=== PATIENT | male | born 1965 | race African-American/Black ===

== ENCOUNTER 2017-08-27 18:09 | Inpatient (IN) | payer OTHER ==
[2017-08-27 21:21] VITALS: BMI 22.7
--- NOTE | 2017-08-27 23:53 | HP ---
<Maki Chin - Last Filed: 08/28/17 02:47> CIWA Score - CIWA Score Nausea/Vomitin-No Nausea/No Vomiting Muscle Tremors: 4-Moderate,w/Arms Extend Anxiety: 4-Mod. Anxious/Guarded Agitation: 4-Moderately Restless Paroxysmal Sweats: No Perspiration Orientation: 1-Uncertain about Date Tacttile Disturbances: 1-Very Mild Itch/Numbness Auditory Disturbances: 0-None Visual Disturbances: 0-None Headache: 4-Moderately Severe CIWA-Ar Total Score: 18 Admission ROS S - HPI Chief Complaint: Alcohol withdrawal symptoms Allergies/Adverse Reactions: Allergies Allergy/AdvReac Type Severity Reaction Status Date / Time No Known Allergies Allergy Verified 08/27/17 23:13 History of Present Illness: 52 years old male with a long history of alcohol , cocaine and marijuana dependence was admitted to detox. Patient has been in previous detox and reports no significant period of sobriety. He had triple heart bypass but can not recollect when the procedure was done. He denies suicidal ideation at this time. Exam Limitations: No Limitations - Ebola screening Have you traveled outside of the country in the last 21 days: No Have you had contact with anyone from an Ebola affected area: No Have you been sick,other than usual withdrawal symptoms: No - Review of Systems Constitutional: Chills, Loss of Appetite, Malaise, Night Sweats, Changes in sleep EENT: reports: Nose Congestion, Sinus Pressure Cardiac: reports: No Symptoms Reported GI: reports: Diarrhea (x 2), Poor Appetite, Poor Fluid Intake, Abdominal cramping : reports: No Symptoms Reported Musculoskeletal: reports: No Symptoms Reported, Back Pain, Muscle Pain, Muscle Weakness Integumentary: reports: Flushing Neuro: reports: Headache, Tingling, Tremors Endocrine: reports: Flushing Hematology: reports: No Symptoms Reported Psychiatric: reports: Agitated, Anxious, Depressed Other Systems: Reviewed and Negative Patient History - Patient Medical History Hx Anemia: No Hx Asthma: No Hx Chronic Obstructive Pulmonary Disease (COPD): No Hx Cancer: No Hx Cardiac Disorders: Yes (Triple heart bypass) Hx Congestive Heart Failure: No Hx Hypertension: No Hx Hypercholesterolemia: No Hx Pacemaker: No HX Cerebrovascular Accident: No Hx Seizures: No Hx Dementia: No Hx Diabetes: No Hx Gastrointestinal Disorders: No Hx Liver Disease: No Hx Genitourinary Disorders: No Hx Sexually Transmitted Disorders: No Hx Renal Disease (ESRD): No Hx Thyroid Disease: No Hx Human Immunodeficiency Virus (HIV): No Hx Hepatitis C: No Hx Depression: No Hx Suicide Attempt: No Hx Bipolar Disorder: No Hx Schizophrenia: No - Patient Surgical History Past Surgical History: Yes Hx Neurologic Surgery: No Hx Cataract Extraction: No Hx Cardiac Surgery: No Hx Lung Surgery: No Hx Breast Surgery: No Hx Breast Biopsy: No Hx Abdominal Surgery: No Hx Appendectomy: No Hx Cholecystectomy: No Hx Genitourinary Surgery: No Hx Section: No Hx Orthopedic Surgery: Yes (left pinky tendon repair with contracture) Other Surgical History: CARDIAC ANGIOGRAPHY-2008 - PPD History Previous Implant?: Yes Documented Results: Negative w/proof Implanted On Prior [facility] Admission?: Yes Date: 11/25/14 PPD to be Administered?: Yes - Reproductive History Patient is a Female of Child Bearing Age (11 -55 yrs old): No (MALE) - Smoking Cessation Smoking history: Current every day smoker Have you smoked in the past 12 months: Yes Aproximately how many cigarettes per day: 10 Hx Chewing Tobacco Use: No Initiated information on smoking cessation: Yes 'Breaking Loose' booklet given: 08/28/17 - Substances Abused Alcohol Route: Oral Frequency: Daily Amount used: BEER- 1. 40oz Age of first use: 19 Date of Last Use: 08/26/17 Crack Route: Smoking Frequency: Daily Amount used: 5 bags Age of first use: 19 Date of Last Use: 08/26/17 Family Disease History - Family Disease History Family Disease History: Heart Disease: Father (Heart attack - ) Admission Physical Exam S - Vital Signs Vital Signs: Vital Signs - 24 hr 08/27/17 21:19 Temperature 98.8 F Pulse Rate 100 H Respiratory 18 Rate Blood Pressure 112/76 - Physical General Appearance: Yes: Moderate Distress, Tremorous, Irritable, Anxious HEENTM: Yes: EOMI, Normal Voice, CHITRA Respiratory: Yes: Lungs Clear, Normal Breath Sounds, No Respiratory Distress Neck: Yes: Supple Breast: Yes: Breast Exam Deferred Cardiology: Yes: Tachycardia Abdominal: Yes: Normal Bowel Sounds, Soft Genitourinary: Yes: Within Normal Limits Back: Yes: Within Normal Limits Musculoskeletal: Yes: Muscle Pain, Muscle weakness Extremities: Yes: Tremors, Other (tatoo to left shoulder) Neurological: Yes: Within Normal Limits, Alert, Normal Mood/Affect, Normal Response Integumentary: Yes: Dry Lymphatic: Yes: Within Normal Limits - Diagnostic (1) Alcohol dependence with uncomplicated withdrawal Current Visit: Yes Status: Chronic (2) Cocaine dependence, uncomplicated Current Visit: Yes Status: Chronic (3) Cannabis dependence, uncomplicated Current Visit: Yes Status: Chronic (4) Nicotine dependence Current Visit: No Status: Chronic QualifierTitle: Nicotine product type: cigarettes Cleared for Admission [facility] - Detox or Rehab [facility] Level of Care: Medically Managed Detox Regimen/Protocol: Librium [facility] Breath Alcohol Content Breath Alcohol Content: 0 Urine Drug Screen - Results Drug Screen Negative: No Urine Drug Screen Results: MARNIE-Cocaine <Robert Hernandez - Last Filed: 08/29/17 07:51> Admission Physical Exam [facility] - Vital Signs Vital Signs: Vital Signs - 24 hr 08/28/17 08/28/17 08/28/17 09:57 14:01 23:17 Temperature 99.1 F 97.0 F L Pulse Rate 97 H 87 Respiratory 20 19 18 Rate Blood Pressure 103/58 107/59 08/28/17 08/29/17 08/29/17 23:24 06:00 06:42 Temperature 99.1 F 98.4 F Pulse Rate 97 H 90 Respiratory 20 18 17 Rate Blood Pressure 118/72 124/62 - Diagnostic (1) Learning disorder Current Visit: No Status: Chronic (2) CAD (coronary artery disease) Current Visit: Yes Status: Acute
[2017-08-28] MEDS ORDERED: MAGNESIUM HYDROX 2400MG/30ML ORAL SUSPENSION 30 ML CUP PO PRN (00:12)
[2017-08-28] MEDS ORDERED: MAG HYDROX/AL HYDROX/SIMETH 30 ML UNIT-DOSE CUP PO PRN (00:12)
[2017-08-28] MEDS ORDERED: hydrOXYzine PAMOATE 50 MG CAPSULE (FP) PO PRN (00:12)
[2017-08-28] MEDS ORDERED: ACETAMINOPHEN 325 MG TABLET (FP) PO PRN (00:12)
[2017-08-28] MEDS ORDERED: chlordiazePOXIDE HCL 25 MG CAPSULE PO ONE (00:12)
[2017-08-28] MEDS ORDERED: MENTHOL/PHENOL 1 EACH UD MM PRN (00:12)
[2017-08-28] MEDS ORDERED: guaiFENesin/D-METHORPHAN HB 10 ML UNIT-DOSE CUPS PO PRN (00:12)
[2017-08-28] MEDS ORDERED: IBUPROFEN 400 MG TABLET (FP) PO PRN (00:12)
[2017-08-28] MEDS ORDERED: NICOTINE POLACRILEX 2 MG GUM BC PRN (00:12)
[2017-08-28] MEDS ORDERED: chlordiazePOXIDE HCL 25 MG CAPSULE PO PRN (00:12)
[2017-08-28] MEDS ORDERED: MAGNESIUM CITRATE 300 ML BOTTLE PO PRN (00:12)
[2017-08-28] MEDS ORDERED: LOPERAMIDE HCL 2 MG CAPSULE PO PRN (00:12)
[2017-08-28] MEDS ORDERED: P-EPHED 60MG/TRIPROLIDI 2.5MG TABLET PO PRN (00:12)
[2017-08-28] MEDS: chlordiazePOXIDE HCL 25 MG CAPSULE PO SCH ×4 (07:40→22:37)
[2017-08-28 09:51] LABS: MCH 38.1 pg (25.7-33.7); MCHC 34.1 g/dl (32.0-35.9); MEAN CELL VOLUME 111.6 fl (80-96); MEAN PLT VOLUME 8.4 fl (7.5-11.1); PLATELET COUNT 165 K/MM3 (134-434); WHITE BLOOD COUNT 6.3 K/mm3 (4.0-10.0)
--- NOTE | 2017-08-28 10:09 | EKG ---
Test Reason : Blood Pressure : / mmHG Vent. Rate : 086 BPM Atrial Rate : 086 BPM P-R Int : 134 ms QRS Dur : 076 ms QT Int : 354 ms P-R-T Axes : 071 053 044 degrees QTc Int : 423 ms SINUS RHYTHM WITH FREQUENT and consecutive PREMATURE VENTRICULAR COMPLEXES SEPTAL INFARCT , AGE UNDETERMINED ABNORMAL ECG NO PREVIOUS ECGS AVAILABLE Confirmed by TONI GOODWIN MD ([id number]) on 08/28/2017 10:08:38 AM Referred By: Confirmed By:TONI GOODWIN MD
[2017-08-28 10:14] LABS: ALBUMIN 3.2 g/dl (3.4-5.0); ALK PHOS 64 U/L (45-117); ANION GAP 6 (8-16); CO2 27 mmol/L (21-32); CREATININE 0.9 mg/dL (0.7-1.3); GLUCOSE,RANDOM 98 mg/dL (74-106); SGOT/AST 11 U/L (15-37); SGPT/ALT 17 U/L (12-78); TOT PROT 5.6 g/dl (6.4-8.2)
--- NOTE | 2017-08-28 10:55 | PN ---
S CIWA - CIWA Score Nausea/Vomitin-No Nausea/No Vomiting Muscle Tremors: 3 Anxiety: 3 Agitation: 2 Paroxysmal Sweats: 3 Orientation: 0-Oriented Tacttile Disturbances: 0-None Auditory Disturbances: 0-None Visual Disturbances: 0-None Headache: 0-None Present CIWA-Ar Total Score: 11 S Progress Note (SOAP) Subjective: Sweating,tremors,anxiety,interrupted sleep,restless. Objective: 08/28/17 10:54 Vital Signs - 8 hr 08/28/17 08/28/17 08/28/17 04:21 06:34 09:57 Temperature 96.4 F L 99.1 F Pulse Rate 93 H 97 H Respiratory 18 18 20 Rate Blood Pressure 113/67 103/58 Laboratory Tests 08/28/17 08/28/17 07:00 07:00 WBC 6.3 RBC 3.10 L Hgb 11.8 Hct 34.6 L MCV 111.6 H MCH 38.1 H D MCHC 34.1 RDW 16.0 H Plt Count 165 D MPV 8.4 Sodium 143 Potassium 3.7 Chloride 110 H Carbon Dioxide 27 Anion Gap 6 L BUN 13 Creatinine 0.9 Creat Clearance w eGFR > 60 Random Glucose 98 Calcium 8.0 L Total Bilirubin 1.0 D AST 11 L ALT 17 D Alkaline Phosphatase 64 Total Protein 5.6 L Albumin 3.2 L labs noted Assessment: 08/28/17 10:54 Withdrawal sx. Plan: Continue detox Change level of care
[2017-08-28] MEDS: PRENATAL VITAMINS W/ FOLIC ACID TABLET (FP) PO SCH (11:08)
[2017-08-28] MEDS: NICOTINE 14 MG/24 HOURS TOPICAL PATCH TD SCH (11:09)
[2017-08-28] MEDS: ASPIRIN 81 MG CHEWABLE TABLETS PO SCH (11:09)
[2017-08-28 13:37] LABS: URINE APPEARANCE CLEAR; URINE BILIRUBIN NEGATIVE (NEGATIVE); URINE BLOOD NEGATIVE (NEGATIVE); URINE COLOR LTYELLOW; URINE GLUCOSE (UA) NEGATIVE (NEGATIVE); URINE KETONE NEGATIVE (NEGATIVE); URINE NITRITE NEGATIVE (NEGATIVE); URINE PROTEIN NEGATIVE (NEGATIVE); URINE UROBILINOGEN 4.0 E.U/dl mg/dL (0.2-1.0)
[2017-08-28 17:15] LABS: URINE LEUK ESTERASE Negative (NEGATIVE)
[2017-08-28] MEDS: THIAMINE HCL 100 MG TABLET (FP) PO SCH (22:37)
[2017-08-29] MEDS: chlordiazePOXIDE HCL 25 MG CAPSULE PO SCH ×4 (05:55→22:56)
[2017-08-29] MEDS: PRENATAL VITAMINS W/ FOLIC ACID TABLET (FP) PO SCH (10:50)
[2017-08-29] MEDS: NICOTINE 14 MG/24 HOURS TOPICAL PATCH TD SCH (10:50)
[2017-08-29] MEDS: ASPIRIN 81 MG CHEWABLE TABLETS PO SCH (10:50)
--- NOTE | 2017-08-29 14:00 | PN ---
S CIWA - CIWA Score Nausea/Vomitin-No Nausea/No Vomiting Muscle Tremors: 3 Anxiety: 3 Agitation: 3 Paroxysmal Sweats: 3 Orientation: 2-Disoriented Date<2 days Tacttile Disturbances: 1-Very Mild Itch/Numbness Auditory Disturbances: 0-None Visual Disturbances: 0-None Headache: 0-None Present CIWA-Ar Total Score: 15 [facility] Progress Note (SOAP) Subjective: Anxiety,sweating,tremors,interrupted sleep,restless Objective: 08/29/17 13:59 Vital Signs - 8 hr 08/29/17 08/29/17 08/29/17 06:00 06:42 10:00 Temperature 98.4 F 97.9 F Pulse Rate 90 101 H Respiratory 18 17 20 Rate Blood Pressure 124/62 119/56 Laboratory Tests 08/28/17 08/28/17 08/28/17 07:00 07:00 07:00 WBC 6.3 RBC 3.10 L Hgb 11.8 Hct 34.6 L MCV 111.6 H MCH 38.1 H D MCHC 34.1 RDW 16.0 H Plt Count 165 D MPV 8.4 Sodium 143 Potassium 3.7 Chloride 110 H Carbon Dioxide 27 Anion Gap 6 L BUN 13 Creatinine 0.9 Creat Clearance w eGFR > 60 Random Glucose 98 Calcium 8.0 L Total Bilirubin 1.0 D AST 11 L ALT 17 D Alkaline Phosphatase 64 Total Protein 5.6 L Albumin 3.2 L Urine Color Urine Appearance Urine pH Ur Specific [place] Urine Protein Urine Glucose (UA) Urine Ketones Urine Blood Urine Nitrite Urine Bilirubin Urine Urobilinogen Ur Leukocyte Esterase RPR Titer Hepatitis C Antibody <0.1 08/28/17 08/28/17 07:00 10:00 WBC RBC Hgb Hct MCV MCH MCHC RDW Plt Count MPV Sodium Potassium Chloride Carbon Dioxide Anion Gap BUN Creatinine Creat Clearance w eGFR Random Glucose Calcium Total Bilirubin AST ALT Alkaline Phosphatase Total Protein Albumin Urine Color Ltyellow Urine Appearance Clear Urine pH 7.0 D Ur Specific [place] 1.013 Urine Protein Negative Urine Glucose (UA) Negative Urine Ketones Negative Urine Blood Negative Urine Nitrite Negative Urine Bilirubin Negative Urine Urobilinogen 4.0 e.u/dl Ur Leukocyte Esterase Negative RPR Titer Nonreactive Hepatitis C Antibody labs noted Assessment: 08/29/17 13:59 Withdrawal sx. Plan: Continue detox
[2017-08-29] MEDS: THIAMINE HCL 100 MG TABLET (FP) PO SCH (22:56)
[2017-08-30] MEDS ORDERED: chlordiazePOXIDE 5 MG CAPSULE PO SCH (05:00)
[2017-08-30 09:48] VITALS: BP 99/77; PULSE 92; TEMP 98.2
--- NOTE | 2017-08-30 10:49 | DS ---
[facility] Detox Discharge Summary Admission Date: 08/27/17 Discharge Date: 08/30/17 - History Present History: Alcohol Dependence, Cannabis Dependence, Cocaine Dependence Additional Comments: face to face with the patient discuss benefits of detox completion encourage aftercare for recovery patient insists to leave today and go to [facility] tomorrow - Physical Exam Results Vital Signs: Vital Signs Temperature 98.2 F 08/30/17 09:47 Pulse Rate 92 H 08/30/17 09:47 Respiratory Rate 20 08/30/17 09:47 Blood Pressure 99/77 08/30/17 09:47 O2 Sat by Pulse Oximetry (%) Pertinent Admission Physical Exam Findings: withdrawal sx Laboratory Last Values WBC 6.3 K/mm3 (4.0-10.0) 08/28/17 07:00 RBC 3.10 M/mm3 (4.00-5.60) L 08/28/17 07:00 Hgb 11.8 GM/dL (11.7-16.9) 08/28/17 07:00 Hct 34.6 % (35.4-49) L 08/28/17 07:00 MCV 111.6 fl (80-96) H 08/28/17 07:00 MCH 38.1 pg (25.7-33.7) H D 08/28/17 07:00 MCHC 34.1 g/dl (32.0-35.9) 08/28/17 07:00 RDW 16.0 % (11.9-15.9) H 08/28/17 07:00 Plt Count 165 K/MM3 (134-434) D 08/28/17 07:00 MPV 8.4 fl (7.5-11.1) 08/28/17 07:00 Sodium 143 mmol/L (136-145) 08/28/17 07:00 Potassium 3.7 mmol/L (3.5-5.1) 08/28/17 07:00 Chloride 110 mmol/L (98-107) H 08/28/17 07:00 Carbon Dioxide 27 mmol/L (21-32) 08/28/17 07:00 Anion Gap 6 (8-16) L 08/28/17 07:00 BUN 13 mg/dL (7-18) 08/28/17 07:00 Creatinine 0.9 mg/dL (0.7-1.3) 08/28/17 07:00 Creat Clearance w eGFR > 60 (>60) 08/28/17 07:00 Random Glucose 98 mg/dL (74-106) 08/28/17 07:00 Calcium 8.0 mg/dL (8.5-10.1) L 08/28/17 07:00 Total Bilirubin 1.0 mg/dL (0.2-1.0) D 08/28/17 07:00 AST 11 U/L (15-37) L 08/28/17 07:00 ALT 17 U/L (12-78) D 08/28/17 07:00 Alkaline Phosphatase 64 U/L (45-117) 08/28/17 07:00 Total Protein 5.6 g/dl (6.4-8.2) L 08/28/17 07:00 Albumin 3.2 g/dl (3.4-5.0) L 08/28/17 07:00 Urine Color Ltyellow 08/28/17 10:00 Urine Appearance Clear 08/28/17 10:00 Urine pH 7.0 (5.0-8.0) D 08/28/17 10:00 Ur Specific [place] 1.013 (1.001-1.035) 08/28/17 10:00 Urine Protein Negative (NEGATIVE) 08/28/17 10:00 Urine Glucose (UA) Negative (NEGATIVE) 08/28/17 10:00 Urine Ketones Negative (NEGATIVE) 08/28/17 10:00 Urine Blood Negative (NEGATIVE) 08/28/17 10:00 Urine Nitrite Negative (NEGATIVE) 08/28/17 10:00 Urine Bilirubin Negative (NEGATIVE) 08/28/17 10:00 Urine Urobilinogen 4.0 e.u/dl mg/dL (0.2-1.0) 08/28/17 10:00 Ur Leukocyte Esterase Negative (NEGATIVE) 08/28/17 10:00 RPR Titer Nonreactive (NONREACTIVE) 08/28/17 07:00 Hepatitis C Antibody <0.1 s/co ratio (0.0-0.9) 08/28/17 07:00 lab noted - Treatment Hospital Course: Detox Protocol Followed, Responded well Patient has Accepted a Rehab Referral to: patient wants to go home and go to [facility] 11/04/17 - Medication Discharge Medications: Ambulatory Orders Aspirin [ASA -] 81 mg PO DAILY #30 tab 08/31/12 Ferrous Sulfate [Feosol] 0 mg PO BID #0 ud 08/31/12 - Diagnosis (1) Alcohol dependence with uncomplicated withdrawal Current Visit: Yes Status: Acute (2) Cannabis dependence, uncomplicated Current Visit: Yes Status: Chronic (3) Cocaine dependence, uncomplicated Current Visit: Yes Status: Chronic (4) Nicotine dependence Current Visit: Yes Status: Acute Qualifiers: Nicotine product type: cigarettes Substance use status: in withdrawal Qualified Code(s): F17.213 - Nicotine dependence, cigarettes, with withdrawal - AMA Did Patient Leave Against Medical Advice: Yes
--- NOTE | 2017-08-30 11:10 | PN ---
[facility] Progress Note Note: Patient could not be seen because he signed out against medical advice
[2017-08-31] MEDS ORDERED: chlordiazePOXIDE HCL 10 MG CAPSULE PO SCH (05:00)
== END 2017-08-30 10:30 | disposition left against medical advice (07) | DRG 770 ==
LOC: YASAS 18:09 → Y6N 23:17
PROVIDERS: ADMIT Internal Medicine; ATTEND Internal Medicine
PROC: HZ2ZZZZ Detoxification Services for Substance Abuse Treatment (ICD-10-PCS; principal; 2017-08-27)
DX: F10.230 Alcohol dependence with withdrawal, uncomplicated (principal); F14.20 Cocaine dependence, uncomplicated; F12.20 Cannabis dependence, uncomplicated; F17.213 Nicotine dependence, cigarettes, with withdrawal; Z95.1 Presence of aortocoronary bypass graft
CPT/HCPCS: 36415; 80053; 81003; 85027; 86593; 86803; 93005; 93010

== ENCOUNTER 2019-03-17 15:22 | Emergency (ER) | payer OTHER ==
[2019-03-17 15:58] VITALS: BMI 23.1
--- NOTE | 2019-03-17 16:03 | PDOC ---
History of Present Illness - General Chief Complaint: Lightheaded Stated Complaint: CVA/TIA Time Seen by Provider: 03/17/19 16:03 History Source: Patient Exam Limitations: No Limitations - History of Present Illness Initial Comments: 03/17/19 16:18 54 year old male with PMH cocaine/marijuana/ETOH/nicotine abuse, GERD, irregular heart beat presented to ED for lightheadedness since last night. Pt admitted to generalized weakness. Pt denied nausea/vomiting/diarrhea, abdominal pain, chest pain, palpitations, focal weakness, numbness, tingling. Pt was seen at [facility], was told he needed a head CT for a stroke rule out, and sent to [facility] ED because their CT machine was broken. NIH Stroke Scale - Last Known Well Date/Time & Onset Date Last Known Well: 03/17/19 Time Last Known Well: 12:30 - Initial Evaluation Level of consciousness: Alert Ask patient the month and their age: Answers both correctly Ask patient to open & close eyes; make fist and let go: Obeys one correctly ( Did not know the month) Best gaze (horizontal eye movement): Normal Visual field testing: No visual field loss Facial paresis (Show teeth/raise eyebrows/close eyes tight): Normal symmetrical movement Motor Function: Left Arm: Normal Motor Function: Right Arm: Normal (extends arm 90 (or 45) degrees for 10 seconds without drift Motor Function: Left Leg: Normal (extends leg 30 degrees for 5 seconds without drift) Motor Function: Right Leg: Normal (extends leg 30 degrees for 5 seconds without drift) Limb Ataxia: No ataxia Sensory(Use pinprick test arms,legs,trunk,face/side to side): Normal Best language (Describe picture, name items, read sentences): No Aphasia Dysarthria (read several words): Normal articulation Extinction and Inattention: No abnormality - Total Score NIH Stroke Scale Score: 1 Past History - Past Medical History Allergies/Adverse Reactions: Allergies Allergy/AdvReac Type Severity Reaction Status Date / Time No Known Allergies Allergy Verified 03/17/19 15:54 Home Medications: Ambulatory Orders Aspirin [ASA -] 81 mg PO DAILY #30 tab 08/31/12 Ferrous Sulfate [Feosol] 0 mg PO BID #0 ud 08/31/12 Anemia: Yes Asthma: No Cancer: No Cardiac Disorders: Yes (Triple heart bypass) CVA: Yes (walks with cane.) COPD: No CHF: No Dementia: No Diabetes: No GI Disorders: No Disorders: No HTN: No Hypercholesterolemia: No Kidney Stones: No Liver Disease: No Seizures: No Thyroid Disease: No - Surgical History Abdominal Surgery: No Appendectomy: No Cardiac Surgery: No Cholecystectomy: No Lung Surgery: No Neurologic Surgery: No Orthopedic Surgery: Yes (left pinky tendon repair with contracture) - Reproductive History Testicular Surgery: No - Suicide/Smoking/Psychosocial Hx Smoking History: Current every day smoker Have you smoked in the past 12 months: Yes Number of Cigarettes Smoked Daily: 2 Cigars Per Day: 0 Information on smoking cessation initiated: No 'Breaking Loose' booklet given: 08/28/17 Hx Alcohol Use: No Drug/Substance Use Hx: No Substance Use Type: Cocaine ("every day that I can get my hands on it") Hx Substance Use Treatment: Yes (Attends [facility]) Review of Systems - Review of Systems Able to Perform ROS?: Yes Comments:: 03/17/19 16:19 General: admitted to generalized weakness. denied fever, chills. HEENT: denied sore throat, rhinorrhea, ear pain. Heart: admitted to presyncope. denied chest pain, palpitations, diaphoresis. Respiratory: denied shortness of breath, cough, sputum production, hemoptysis. Abdomen: denied abdominal pain, nausea, vomiting, diarrhea, constipation, blood in stool. : denied dysuria, increased urinary frequency, hematuria, urinary incontinence , flank pain. Back: denied back pain. Musculoskeletal: denied joint pain, muscle pain, joint swelling. Neurological: denied headache, dizziness, numbness, tingling, weakness. Skin: denied rash, laceration, abrasion. *Physical Exam - Vital Signs Last Vital Signs Temp Pulse Resp BP Pulse Ox 98.1 F 84 16 91/57 L 100 03/17/19 15:22 03/17/19 15:22 03/17/19 15:22 03/17/19 15:22 03/17/19 15:22 - Physical Exam Comments: 03/17/19 16:20 Constitutional: Well-nourished, Well-developed, appearing stated age. in no acute distress. HEENT: head is normocephalic, atraumatic. EOMI. PERRLA. Neck: supple. Full ROM. Heart: regular rhythm. no murmurs, rubs or gallops. Lungs: clear to auscultation bilaterally. no crackles, rhonchi or wheezing. no stridor. Abdomen: soft, nontender. normal bowel sounds. no rebound, guarding, masses. Extremities: peripheral pulses intact. no lower extremity edema. Neurological: alert. oriented x3. CN2-12 intact. 5/5 strength all extremities. full sensation all extremities and bilateral face. romberg negative. no ataxia. gait not observed. Psych: awake, somnolent but arousable to voice, oriented x3. follows commands. answers questions appropriately. ED Treatment Course - LABORATORY CBC & Chemistry Diagram: 03/17/19 16:30 03/17/19 16:30 Medical Decision Making - Medical Decision Making 03/17/19 16:21 54 year old male with above PMH presented to ED for lightheadedness associated with generalized weakness. Pt is poorly compliant with medication. Initial Vital Signs Temp Pulse Resp BP Pulse Ox 98.1 F 84 16 91/57 L 100 03/17/19 15:22 03/17/19 15:22 03/17/19 15:22 03/17/19 15:22 03/17/19 15:22 Afebrile. No tachycardia. No tachypnea. Hypotensive. No hypoxia on room air. Labs ordered: CBC, CMP, TSH, troponin, BNP Imaging ordered: CXR, CT head Medications ordered: normal saline bolus 1000 cc EKG performed at 1619: rate 84, regular rhythm, normal axis, normal intervals, no acute ST changes. 03/17/19 17:33 CBC WBC 2.9 K/mm3 (4.0-10.0) L 03/17/19 16:30 RBC 0.99 M/mm3 (4.00-5.60) L 03/17/19 16:30 Hgb 4.2 GM/dL (11.7-16.9) L* 03/17/19 16:30 Hct 12.0 % (35.4-49) L 03/17/19 16:30 MCV 120.6 fl (80-96) H 03/17/19 16:30 MCH 42.7 pg (25.7-33.7) H D 03/17/19 16:30 MCHC 35.4 g/dl (32.0-35.9) 03/17/19 16:30 RDW 20.3 % (11.9-15.9) H 03/17/19 16:30 Plt Count 86 K/MM3 (134-434) L D 03/17/19 16:30 MPV 8.3 fl (7.5-11.1) 03/17/19 16:30 Severe macrocytic anemia. Leukopenia. Thrombocytopenia. Pt informed of results and need for PRBC. Pt informed of risks of blood transfusion. Pt consented to blood transfusion. Pt consented to HIV testing. Labs ordered: T/S x2, HIV 03/17/19 17:40 CMP Sodium 140 mmol/L (136-145) 03/17/19 16:30 Potassium 4.2 mmol/L (3.5-5.1) 03/17/19 16:30 Chloride 108 mmol/L (98-107) H 03/17/19 16:30 Carbon Dioxide 28 mmol/L (21-32) 03/17/19 16:30 Anion Gap 3 MMOL/L (8-16) L 03/17/19 16:30 BUN 9.6 mg/dL (7-18) 03/17/19 16:30 Creatinine 0.9 mg/dL (0.55-1.3) 03/17/19 16:30 Est GFR (CKD-EPI)AfAm 112.62 03/17/19 16:30 Est GFR (CKD-EPI)NonAf 97.17 03/17/19 16:30 Random Glucose 100 mg/dL (74-106) 03/17/19 16:30 Calcium 8.1 mg/dL (8.5-10.1) L 03/17/19 16:30 Total Bilirubin 0.8 mg/dL (0.2-1) 03/17/19 16:30 AST 321 U/L (15-37) H 03/17/19 16:30 ALT 115 U/L (13-61) H 03/17/19 16:30 Alkaline Phosphatase 51 U/L (45-117) 03/17/19 16:30 Troponin I < 0.02 ng/ml (0.00-0.05) 03/17/19 16:30 B-Natriuretic Peptide 290.5 pg/ml (5-125) H 03/17/19 16:30 Total Protein 6.4 g/dl (6.4-8.2) 03/17/19 16:30 Albumin 3.9 g/dl (3.4-5.0) 03/17/19 16:30 TSH 1.53 uIU/ml (0.358-3.74) 03/17/19 16:30 No electrolyte abnormalities. No TANIA. Transaminitis - without abdominal pain. Troponin wnl Mild BNP elevation TSH wnl Labs ordered: Hepatitis panel 03/17/19 18:04 CT head report: Cranial CT without contrast Clinical information: altered mental status, somnolent Multiplanar imaging was performed. Intravenous contrast was not administered. No prior imaging studies are available at this facility for direct comparison. There is prominent dilatation of the lateral and third ventricles consistent with obstructive hydrocephalus. Possible dilatation of the fourth ventricle is also noted versus representing dilatation of the supracerebellar cistern. No definite periventricular interstitial edema is seen suggesting that the obstructive hydrocephalus may in part be chronic in nature. No extra-axial fluid collection is noted. There is no obvious soft tissue mass lesion on noncontrast imaging. No discrete infarct is identified. The calvarium appears intact. Mild to moderate bilateral ethmoid and mild sphenoid sinus mucosal thickening. Mucosal thickening is also seen within the partially imaged maxillary sinuses. Impression: Marked obstructive hydrocephalus is seen. Reported By: Sundeep Jacobs MD 03/17/19 175 CXR report: Chest: Presyncope. Cough. A single AP portable view of the chest reveals clear lungs, normal mediastinum and sharp angles. The bones and soft tissues are intact. Impression: No acute chest pathology. Reported By: Kal Avalos MD 03/17/19 [id number] 03/17/19 18:36 [facility] ED attending reported via phone that patient has only been seen at [facility] one time prior, reported CVA x1 year ago, was not seen at [facility] for it, no prior head imaging at [facility]. 03/17/19 18:[address] Kerns, Neurosurgery, he recommended transfer for possible shunting which could not be performed at this facility. 03/17/19 19:[address] Odonnell, who accepted the patient for transfer. Pt to be transferred to [facility] ER. Pending transfer. Pt signed out to Dr. Bear. Pending blood transfusion. Pending transfer. *DC/Admit/Observation/Transfer Diagnosis at time of Disposition: Leukopenia, Macrocytic anemia, Hydrocephalus - Discharge Dispostion Disposition: TRANSFER ACUTE CARE/OTHER HOSP Condition at time of disposition: Stable Decision to Admit order: No - Referrals - Patient Instructions - Post Discharge Activity
[2019-03-17] MEDS ORDERED: SODIUM CHLORIDE 1,000 ML IV STA (16:06)
[2019-03-17 17:06] LABS: MCHC 35.4 g/dl (32.0-35.9); MEAN CELL VOLUME 120.6 fl (80-96); MEAN PLT VOLUME 8.3 fl (7.5-11.1); RBC 0.99 M/mm3 (4.00-5.60); RDW 20.3 % (11.9-15.9); WHITE BLOOD COUNT 2.9 K/mm3 (4.0-10.0)
[2019-03-17 17:07] LABS: HEMOGLOBIN 4.2 GM/dL (11.7-16.9); MCH 42.7 pg (25.7-33.7)
[2019-03-17 17:08] LABS: PLATELET COUNT 86 K/MM3 (134-434)
[2019-03-17 17:16] LABS: INR 1.13 (0.83-1.09); PROTHROMBIN TIME (PATIENT) 13.3 SEC (9.7-13.0)
[2019-03-17 17:19] LABS: ACTIVATED PTT 33.5 SECONDS (25.2-36.5)
[2019-03-17 17:38] LABS: ALBUMIN 3.9 g/dl (3.4-5.0); ALK PHOS 51 U/L (45-117); ANION GAP 3 MMOL/L (8-16); BILIRUBIN,TOTAL 0.8 mg/dL (0.2-1); BLOOD UREA NITROGEN 9.6 mg/dL (7-18); CALCIUM 8.1 mg/dL (8.5-10.1); CHLORIDE 108 mmol/L (98-107); CO2 28 mmol/L (21-32); CREATININE 0.9 mg/dL (0.55-1.3); GLUCOSE,RANDOM 100 mg/dL (74-106); N-TERMINAL BNP 290.5 pg/ml (5-125); POTASSIUM 4.2 mmol/L (3.5-5.1); SGOT/AST 321 U/L (15-37); SGPT/ALT 115 U/L (13-61); SODIUM 140 mmol/L (136-145); TOT PROT 6.4 g/dl (6.4-8.2)
[2019-03-17 22:44] VITALS: BP 102/55; PULSE 82; TEMP 98.9
--- NOTE | 2019-03-18 10:22 | PDOC ---
Documentation entered by Dustin Arita SCRIBE, acting as scribe for Lori Carrera MD. Lori Carrera MD: This documentation has been prepared by the Juan J moore Daniel, SCRIBE, under my direction and personally reviewed by me in its entirety. I confirm that the documentation accurately reflects all work, treatment, procedures, and medical decision making performed by me. Attending Attestation - Resident Resident Name: EarlineShereen - ED Attending Attestation I have performed the following: I have examined & evaluated the patient, The case was reviewed & discussed with the resident, I agree w/resident's findings & plan, Exceptions are as noted - HPI HPI: 03/17/19 17:18 The patient is a 54 year old male with a past medical history of HTN, alcohol, cocaine, and heroin abuse brought in by EMS today for evaluation of weakness and lightheadedness. The patient reports that he began to feel general weakness and lightheadedness around 12:30 AM. Patient denies headache, lightheadedness. Denies fever, chills. Denies chest pain, shortness of breath. Denies nausea, vomiting, diarrhea, abdominal pain. Allergies: NKA - Physicial Exam PE: 03/17/19 17:19 GENERAL: Awake, alert, and fully oriented, in no acute distress HEAD: No signs of trauma EYES: PERRLA, EOMI, sclera anicteric, conjunctiva clear ENT: Auricles normal inspection, hearing grossly normal, nares patent, oropharynx clear without exudates. Moist mucosa NECK: Normal ROM, supple, no lymphadenopathy, JVD, or masses LUNGS: Breath sounds equal, clear to auscultation bilaterally. No wheezes, and no crackles HEART: Regular rate and rhythm, normal S1 and S2, no murmurs, rubs or gallops ABDOMEN: Soft, nontender, normoactive bowel sounds. No guarding, no rebound. No masses EXTREMITIES: Normal range of motion, no edema. No clubbing or cyanosis. No cords , erythema, or tenderness BACK: No midline spinal tenderness in cervical/thoracic/lumbar region NEUROLOGICAL: Normal speech, cranial nerves intact, negative pronator drift, 5/ 5 strength in all 4 extremities, normal sensation to light touch in all 4 extremities, normal cerebellar exam, normal gait, normal reflexes and tone SKIN: Warm, Dry, normal turgor, no rashes or lesions noted. - Medical Decision Making 03/17/19 16:23 54yo M with hx HTN, PSA, ?CVA with residual deficits presents to the ED as transfer from [facility] emergency department as their CT machine is down. Pt complaining here of generalized weakness On exam he is chronically ill appearing, cachectic but with normal exam otherwise Labs remarkable for pancytopenia with hgb 4, platelets 87 Also mild LFT bump Pt unknown HIV status, consents to testing CTH with marked hydrocephalus Case discussed with Dr. Flores who recommends MRI w/wo, admission. He recommends holding off on LP until MRI is done and pt's anemia, thrombocytopenia is corrected. Attempted to admit to hospitalist, however Dr. Barron requests NSG consultation prior to accepting Case discussed with Dr. Kerns who recommends transfer to tertiary care center for further management of marked hydrocephalus Pt accepted to [facility] for neurosurgical evaluation. Pt consents for transfer
--- NOTE | 2019-03-18 13:44 | EKG ---
Test Reason : Blood Pressure : / mmHG Vent. Rate : 084 BPM Atrial Rate : 084 BPM P-R Int : 166 ms QRS Dur : 078 ms QT Int : 348 ms P-R-T Axes : 069 057 049 degrees QTc Int : 411 ms NORMAL SINUS RHYTHM NORMAL ECG WHEN COMPARED WITH ECG OF 28-AUG-2017 01:13, PREMATURE VENTRICULAR COMPLEXES ARE NO LONGER PRESENT Confirmed by TONI GOODWIN MD ([id number]) on 03/18/2019 1:43:50 PM Referred By: Confirmed By:TONI GOODWIN MD
[2019-03-19 05:11] LABS: HEP.C VIRUS AB <0.1 s/co ratio (0.0-0.9)
== END 2019-03-17 23:06 | disposition short-term general hospital (02) ==
LOC: JER 15:22
PROC: 3E0337Z Introduction of Electrolytic and Water Balance Substance into Peripheral Vein, Percutaneous Approach (ICD-10-PCS; principal; 2019-03-17)
DX: D53.9 Nutritional anemia, unspecified (principal); D72.819 Decreased white blood cell count, unspecified; D69.6 Thrombocytopenia, unspecified; G91.9 Hydrocephalus, unspecified; I25.10 Atherosclerotic heart disease of native coronary artery without angina pectoris; I10 Essential (primary) hypertension; Z95.1 Presence of aortocoronary bypass graft; Z86.73 Personal history of transient ischemic attack (TIA), and cerebral infarction without residual deficits; Z99.89 Dependence on other enabling machines and devices; F10.10 Alcohol abuse, uncomplicated; F11.10 Opioid abuse, uncomplicated; F14.10 Cocaine abuse, uncomplicated; F17.210 Nicotine dependence, cigarettes, uncomplicated; I95.9 Hypotension, unspecified
CPT/HCPCS: 36415; 36430; 70450-TC; 71045-TC-FY; 80053; 80074; 80307; 83880; 84443; 84484; 85027; 85610; 85730; 86850; 86900; 86901; 86922; 87389; 93005; 93010; 99285-25; J7030; P9038; P9058

== ENCOUNTER 2019-09-14 16:47 | Inpatient (IN) | payer SELFPAY ==
[2019-09-14 19:03] VITALS: BMI 25.1
--- NOTE | 2019-09-14 19:04 | HP ---
CIWA Score Nausea/Vomitin-No Nausea/No Vomiting Muscle Tremors: 2 Anxiety: 2 Agitation: 1-Slight > Activity Paroxysmal Sweats: 1-Minimal Palms Moist Orientation: 0-Oriented Tacttile Disturbances: 1-Very Mild Itch/Numbness Auditory Disturbances: 0-None Visual Disturbances: 0-None Headache: 1-Very Mild CIWA-Ar Total Score: 8 - Admission Criteria [facility]ASAS Guidelines: Admission for Medically Managed Detox: Requires at least one of the followin. CIWA greater than 12 2. Seizures within the past 24 hours 3. Delirium tremens within the past 24 hours 4. Hallucinations within the past 24 hours 5. Acute intervention needed for co occurring medical disorder 6. Acute intervention needed for co occurring psychiatric disorder 7. Severe withdrawal that cannot be handled at a lower level of care (continued vomiting, continued diarrhea, abnormal vital signs) requiring intravenous medication and/or fluids 8. Patient presents the following: Seizures, delirium tremens or hallucinations in the past 12 hours Admission Criteria Met: Admission criteria met Admitting History and Physical - Admission Chief Complaint: 54 y/o m pt with h/o alcohol crack-cocaine and marijuana since age 19. the pt was seen today at [facility] and was referred to detox/rehab for alcohol and drug use problem. The pt reports drinking 1/2 pt of vodka and 12 beers /day . He also smokes about 3 gms of crack -cocaine per day and 1 nickel bag of marijuana /day. Pt states he has trmors in the morning and drinks beer to stop shakes History of Present Illness: see cc History Source: Patient Limitations to Obtaining History: No Limitations - Past Medical History [employer]: Yes: CVA (with left lower extremity weaknee) Cardiovascular: Yes: CAD Heme/Onc: Yes: Anemia, Thrombocytopenia Dermatology: Yes: Other (dry skin lower extremities eyal) Additional Past Medical History: cardiac catherization [facility] - Past Surgical History Past Surgical History: Yes: None - Smoking History Smoking history: Current every day smoker Have you smoked in the past 12 months: Yes Aproximately how many cigarettes per day: 2 - Alcohol/Substance Use Hx Alcohol Use: No Admission ROS [facility] - [facility] Allergies/Adverse Reactions: Allergies Allergy/AdvReac Type Severity Reaction Status Date / Time No Known Allergies Allergy Verified 09/14/19 18:55 - Ebola screening Have you traveled outside of the country in the last 21 days: No (N) Have you had contact with anyone from an Ebola affected area: No Do you have a fever: No - Review of Systems Cardiac: reports: Other (CAD) Musculoskeletal: reports: Muscle Weakness Other Systems: Reviewed and Negative Patient History - Patient Medical History Hx Anemia: Yes Hx Asthma: No Hx Chronic Obstructive Pulmonary Disease (COPD): No Hx Cancer: No Hx Cardiac Disorders: Yes (Triple heart bypass) Hx Congestive Heart Failure: No Hx Hypertension: No Hx Hypercholesterolemia: No Hx Pacemaker: No HX Cerebrovascular Accident: Yes (walks with cane.) Hx Seizures: No Hx Dementia: No Hx Diabetes: No Hx Gastrointestinal Disorders: No Hx Liver Disease: No Hx Genitourinary Disorders: No Hx Sexually Transmitted Disorders: No Hx Renal Disease (ESRD): No Hx Thyroid Disease: No Hx Human Immunodeficiency Virus (HIV): No Hx Hepatitis C: No Hx Depression: No Hx Suicide Attempt: No Hx Bipolar Disorder: No Hx Schizophrenia: No - Patient Surgical History Past Surgical History: Yes Hx Neurologic Surgery: No Hx Cataract Extraction: No Hx Cardiac Surgery: No Hx Lung Surgery: No Hx Breast Surgery: No Hx Breast Biopsy: No Hx Abdominal Surgery: No Hx Appendectomy: No Hx Cholecystectomy: No Hx Genitourinary Surgery: No Hx Section: No Hx Orthopedic Surgery: Yes (left pinky tendon repair with contracture) Other Surgical History: CARDIAC ANGIOGRAPHY-2008 - PPD History Date: 11/25/14 - Reproductive History Patient is a Female of Child Bearing Age (11 -55 yrs old): No - Smoking Cessation Smoking history: Current every day smoker Have you smoked in the past 12 months: Yes Aproximately how many cigarettes per day: 2 Cigars Per Day: 0 Hx Chewing Tobacco Use: No Initiated information on smoking cessation: Yes 'Breaking Loose' booklet given: 09/14/19 - Substance & Tx. History Hx Alcohol Use: Yes Hx Substance Use: Yes Substance Use Type: Alcohol, Cocaine, Marijuana Hx Substance Use Treatment: Yes ([facility]) - Substances abused Alcohol Substance route: Oral Frequency: Daily Amount used: vodka 1/2 pt. /day Age of first use: 19 Date of last use: 09/14/19 Crack Substance route: Smoking Frequency: Daily Amount used: 3 gms/d Age of first use: 19 Date of last use: 12/18/19 Marijuana/Hashish Substance route: Smoking Frequency: 1-2 times per week Amount used: 1 bag/use Age of first use: 19 Date of last use: 09/13/19 Admission Physical Exam [facility] - Vital Signs Vital Signs: bp 116/75, p 88/m , r 18/m, t 97.5, wt 196 lbs, - Physical General Appearance: Yes: No Apparent Distress, Disheveled, Tremorous, Irritable , Anxious HEENTM: Yes: EOMI, Hearing grossly Normal, Normal ENT Inspection, Other (upper dentures , lower missing dentures) Respiratory: Yes: Within Normal Limits, Chest Non-Tender, Lungs Clear Neck: Yes: No masses,lesions,Nodules, Supple, Trachea in good position Breast: Yes: Within Normal Limits Cardiology: Yes: Regular Rhythm, Regular Rate, S1, S2 Abdominal: Yes: Non Tender, Soft, Increased Bowel Sounds, Protuberent Genitourinary: Yes: Frequency Back: Yes: Within Normal Limits Musculoskeletal: Yes: Muscle weakness (rt lower ext.) Extremities: Yes: Tremors 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 NML intact, Fully Oriented, Alert, Normal Response , Numbness (left lower extremity), Finger to Nose Integumentary: Yes: Dry Lymphatic: Yes: Within Normal Limits - Diagnostic (1) Cocaine dependence Current Visit: Yes Status: Chronic (2) Alcohol dependence with uncomplicated withdrawal Current Visit: Yes Status: Chronic (3) CAD (coronary artery disease) Current Visit: No Status: Chronic (4) Marijuana abuse Current Visit: Yes Status: Acute Cleared for Admission [facility] - Detox or Rehab [facility] Level of Care: Medically Managed Detox Regimen/Protocol: Librium Inpatient Rehab Admission - Rehab Decision to Admit Inpatient rehab admission?: No
[2019-09-14] MEDS ORDERED: NICOTINE POLACRILEX 2 MG GUM BUC PRN (19:33)
[2019-09-14] MEDS ORDERED: MAG HYDROX/AL HYDROX/SIMETH 30 ML UNIT-DOSE CUP PO PRN (19:33)
[2019-09-14] MEDS ORDERED: IBUPROFEN 400 MG TABLET (FP) PO PRN (19:33)
[2019-09-14] MEDS ORDERED: MAGNESIUM HYDROX 2400MG/30ML ORAL SUSPENSION 30 ML CUP PO PRN (19:33)
[2019-09-14] MEDS ORDERED: ACETAMINOPHEN 325 MG TABLET (FP) PO PRN ×2 (19:33)
[2019-09-14] MEDS ORDERED: BISMUTH SUBSALICYLATE 524 MG/30 ML UD PO PRN (19:33)
[2019-09-14] MEDS ORDERED: hydrOXYzine PAMOATE 25 MG CAPSULE (FP) PO PRN (19:33)
[2019-09-14] MEDS ORDERED: METHOCARBAMOL 500 MG TABLET PO PRN (19:33)
[2019-09-14] MEDS ORDERED: MENTHOL/PHENOL 1 EACH UD MM PRN (19:33)
[2019-09-14] MEDS ORDERED: chlordiazePOXIDE HCL 10 MG CAPSULE PO PRN (19:33)
[2019-09-14] MEDS ORDERED: MELATONIN 5 MG TABLETS PO PRN (19:33)
[2019-09-14] MEDS ORDERED: MAGNESIUM CITRATE 300 ML BOTTLE PO PRN (19:33)
[2019-09-14] MEDS: chlordiazePOXIDE HCL 25 MG CAPSULE PO SCH (20:35)
[2019-09-15] MEDS: THIAMINE HCL 100 MG TABLET (FP) PO SCH ×2 (00:11→22:30)
[2019-09-15] MEDS: chlordiazePOXIDE HCL 25 MG CAPSULE PO SCH ×3 (06:35→22:30)
--- NOTE | 2019-09-15 09:32 | PN ---
S CIWA - CIWA Score Nausea/Vomitin-Mild Nausea/No Vomiting Muscle Tremors: 2 Anxiety: 3 Agitation: 3 Paroxysmal Sweats: No Perspiration Orientation: 0-Oriented Tacttile Disturbances: 1-Very Mild Itch/Numbness Auditory Disturbances: 0-None Visual Disturbances: 0-None Headache: 1-Very Mild CIWA-Ar Total Score: 11 S Progress Note (SOAP) Subjective: alert,irritable,anxious,interrupted sleep,tremor Objective: 09/15/19 09:31 Vital Signs Temperature 97.3 F L 09/15/19 05:00 Pulse Rate 72 09/15/19 05:00 Respiratory Rate 18 09/15/19 05:00 Blood Pressure 96/60 09/15/19 05:00 O2 Sat by Pulse Oximetry (%) 09/15/19 09:32 labs pending Assessment: 09/15/19 09:32 withdrawal symptom Plan: continue detox librium regimen
[2019-09-15] MEDS ORDERED: P-EPHED 60MG/TRIPROLIDI 2.5MG TABLET PO PRN (09:33)
[2019-09-15 09:49] LABS: HEMOGLOBIN 13.5 GM/dL (11.7-16.9); MCH 32.2 pg (25.7-33.7); MCHC 33.6 g/dl (32.0-35.9); MEAN CELL VOLUME 95.9 fl (80-96); MEAN PLT VOLUME 7.6 fl (7.5-11.1); PLATELET COUNT 289 K/MM3 (134-434); RBC 4.18 M/mm3 (4.00-5.60); RDW 13.3 % (11.9-15.9); WHITE BLOOD COUNT 4.3 K/mm3 (4.0-10.0)
[2019-09-15 10:00] LABS: ALBUMIN 3.2 g/dl (3.4-5.0); BILIRUBIN,TOTAL 0.9 mg/dL (0.2-1); BLOOD UREA NITROGEN 12.8 mg/dL (7-18); CALCIUM 8.6 mg/dL (8.5-10.1); CREATININE 1.2 mg/dL (0.55-1.3); TOT PROT 5.8 g/dl (6.4-8.2)
[2019-09-15] MEDS: ASPIRIN COATED 81 MG TABLET.EC PO SCH (10:16)
[2019-09-15] MEDS: PRENATAL VITAMINS W/ FOLIC ACID TABLET (FP) PO SCH (10:16)
[2019-09-15] MEDS: NICOTINE 14 MG/24 HOURS TOPICAL PATCH TD SCH (10:17)
[2019-09-16] MEDS: chlordiazePOXIDE 5 MG CAPSULE PO SCH ×3 (06:34→22:57)
--- NOTE | 2019-09-16 09:15 | PN ---
[facility] CIWA - CIWA Score Nausea/Vomitin-No Nausea/No Vomiting Muscle Tremors: 2 Anxiety: 2 Agitation: 0-Normal Activity Paroxysmal Sweats: 2 Orientation: 0-Oriented Tacttile Disturbances: 1-Very Mild Itch/Numbness Auditory Disturbances: 0-None Visual Disturbances: 0-None Headache: 0-None Present CIWA-Ar Total Score: 7 S Progress Note (SOAP) Subjective: Patient is here for alcohol detox on librium regimen c/o of interrupted sleep, chills and sweats. Objective: 09/16/19 09:17 Vital Signs Temperature 97.7 F 09/16/19 06:57 Pulse Rate 80 09/16/19 06:57 Respiratory Rate 18 09/16/19 06:57 Blood Pressure 109/67 09/16/19 06:57 O2 Sat by Pulse Oximetry (%) Laboratory Last Values WBC 4.3 K/mm3 (4.0-10.0) 09/15/19 08:00 RBC 4.18 M/mm3 (4.00-5.60) 09/15/19 08:00 Hgb 13.5 GM/dL (11.7-16.9) 09/15/19 08:00 Hct 40.0 % (35.4-49) D 09/15/19 08:00 MCV 95.9 fl (80-96) 09/15/19 08:00 MCH 32.2 pg (25.7-33.7) D 09/15/19 08:00 MCHC 33.6 g/dl (32.0-35.9) 09/15/19 08:00 RDW 13.3 % (11.9-15.9) D 09/15/19 08:00 Plt Count 289 K/MM3 (134-434) D 09/15/19 08:00 MPV 7.6 fl (7.5-11.1) 09/15/19 08:00 Sodium 144 mmol/L (136-145) 09/15/19 08:00 Potassium 4.0 mmol/L (3.5-5.1) 09/15/19 08:00 Chloride 113 mmol/L (98-107) H 09/15/19 08:00 Carbon Dioxide 23 mmol/L (21-32) 09/15/19 08:00 Anion Gap 8 MMOL/L (8-16) 09/15/19 08:00 BUN 12.8 mg/dL (7-18) 09/15/19 08:00 Creatinine 1.2 mg/dL (0.55-1.3) 09/15/19 08:00 Est GFR (CKD-EPI)AfAm 79.53 09/15/19 08:00 Est GFR (CKD-EPI)NonAf 68.62 09/15/19 08:00 Random Glucose 118 mg/dL (74-106) H 09/15/19 08:00 Calcium 8.6 mg/dL (8.5-10.1) 09/15/19 08:00 Total Bilirubin 0.9 mg/dL (0.2-1) 09/15/19 08:00 AST 19 U/L (15-37) 09/15/19 08:00 ALT 18 U/L (13-61) 09/15/19 08:00 Alkaline Phosphatase 82 U/L (45-117) 09/15/19 08:00 Total Protein 5.8 g/dl (6.4-8.2) L 09/15/19 08:00 Albumin 3.2 g/dl (3.4-5.0) L 09/15/19 08:00 RPR Titer Nonreactive (NONREACTIVE) 09/15/19 08:00 Patient AOx3 no acute distress no adventitious breath sounds full ROM no gait disturbance Assessment: 09/16/19 09:18 withdrawal sx Plan: MAT reviewed with patient. Increase PO fluids continue to monitor
--- NOTE | 2019-09-16 10:44 | EKG ---
Test Reason : Blood Pressure : / mmHG Vent. Rate : 075 BPM Atrial Rate : 075 BPM P-R Int : 156 ms QRS Dur : 078 ms QT Int : 336 ms P-R-T Axes : 062 043 029 degrees QTc Int : 375 ms NORMAL SINUS RHYTHM Possible left atrial enlargement WHEN COMPARED WITH ECG OF 17-MAR-2019 16:19, NO SIGNIFICANT CHANGE WAS FOUND Confirmed by TONI GOODWIN MD ([id number]) on 09/16/2019 10:43:47 AM Referred By: BOBBI Confirmed By:TONI GOODWIN MD
[2019-09-16] MEDS: NICOTINE 14 MG/24 HOURS TOPICAL PATCH TD SCH (10:58)
[2019-09-16] MEDS: PRENATAL VITAMINS W/ FOLIC ACID TABLET (FP) PO SCH (10:58)
[2019-09-16] MEDS: ASPIRIN COATED 81 MG TABLET.EC PO SCH (10:58)
[2019-09-16] MEDS: THIAMINE HCL 100 MG TABLET (FP) PO SCH (22:57)
[2019-09-17] MEDS ORDERED: chlordiazePOXIDE HCL 10 MG CAPSULE PO PRN
[2019-09-17] MEDS: chlordiazePOXIDE HCL 10 MG CAPSULE PO SCH ×3 (06:04→22:18)
[2019-09-17] MEDS: ASPIRIN COATED 81 MG TABLET.EC PO SCH (10:12)
[2019-09-17] MEDS: PRENATAL VITAMINS W/ FOLIC ACID TABLET (FP) PO SCH (10:12)
[2019-09-17] MEDS: NICOTINE 14 MG/24 HOURS TOPICAL PATCH TD SCH (10:12)
--- NOTE | 2019-09-17 11:55 | PN ---
S CIWA - CIWA Score Nausea/Vomitin-Mild Nausea/No Vomiting Muscle Tremors: 2 Anxiety: 1-Mildly Anxious Agitation: 0-Normal Activity Paroxysmal Sweats: No Perspiration Orientation: 0-Oriented Tacttile Disturbances: 0-None Auditory Disturbances: 0-None Visual Disturbances: 0-None Headache: 1-Very Mild CIWA-Ar Total Score: 5 BHS Progress Note (SOAP) Subjective: Pt admitted for alcohol detox- leaving tomorrow. thinking about rehab O: Vital Signs - 24 hr 09/16/19 09/16/19 09/16/19 13:33 18:25 20:46 Temperature 98.2 F 98.1 F 97.7 F Pulse Rate 89 87 84 Respiratory 18 16 16 Rate Blood Pressure 122/68 115/76 127/74 09/17/19 09/17/19 09/17/19 00:30 03:30 06:55 Temperature 98.2 F Pulse Rate 79 Respiratory 18 18 18 Rate Blood Pressure 93/53 L 09/17/19 09:38 Temperature 97.9 F Pulse Rate 74 Respiratory 16 Rate Blood Pressure 111/77 Laboratory Tests 09/15/19 09/15/19 09/15/19 08:00 08:00 08:00 WBC 4.3 RBC 4.18 Hgb 13.5 Hct 40.0 D MCV 95.9 MCH 32.2 D MCHC 33.6 RDW 13.3 D Plt Count 289 D MPV 7.6 Sodium 144 Potassium 4.0 Chloride 113 H Carbon Dioxide 23 Anion Gap 8 BUN 12.8 Creatinine 1.2 Est GFR (CKD-EPI)AfAm 79.53 Est GFR (CKD-EPI)NonAf 68.62 Random Glucose 118 H Calcium 8.6 Total Bilirubin 0.9 AST 19 ALT 18 Alkaline Phosphatase 82 Total Protein 5.8 L Albumin 3.2 L RPR Titer Nonreactive a/p: AUD- alcohol detox protocol, d/c tomorrow.
[2019-09-17] MEDS: THIAMINE HCL 100 MG TABLET (FP) PO SCH (22:18)
[2019-09-18] MEDS ORDERED: chlordiazePOXIDE HCL 10 MG CAPSULE PO ONE (05:00)
[2019-09-18 05:53] VITALS: TEMP 98.2
[2019-09-18 09:48] VITALS: BP 110/74; PULSE 90
[2019-09-18] MEDS: ASPIRIN COATED 81 MG TABLET.EC PO SCH (11:11)
[2019-09-18] MEDS: NICOTINE 14 MG/24 HOURS TOPICAL PATCH TD SCH (11:12)
[2019-09-18] MEDS: PRENATAL VITAMINS W/ FOLIC ACID TABLET (FP) PO SCH (11:12)
--- NOTE | 2019-09-18 14:46 | DS ---
[facility] Detox Discharge Summary Admission Date: 09/14/19 Discharge Date: 09/18/19 - History Present History: Alcohol Dependence, Cannabis Dependence, Cocaine Dependence Additional Comments: Pt is medically cleared and discharged today. Pt complete the detox protocol. Pt is encouraged to follow-up with an outpatient CD program and also to follow- up with his pmd. Pt verbalized understanding of the information given. Pt is alert and oriented x3 and in no acute respiratory distress. Pertinent Past History: h/o CVA, alcohol, cannabis, and cocaine use disorder. - Physical Exam Results Vital Signs: Vital Signs Temperature 98.2 F 09/18/19 09:48 Pulse Rate 90 09/18/19 09:48 Respiratory Rate 18 09/18/19 09:48 Blood Pressure 110/74 09/18/19 09:48 O2 Sat by Pulse Oximetry (%) Vital Signs 09/18/19 09:48 Temperature 98.2 F Pulse Rate 90 Respiratory 18 Rate Blood Pressure 110/74 Laboratory Last Values WBC 4.3 K/mm3 (4.0-10.0) 09/15/19 08:00 RBC 4.18 M/mm3 (4.00-5.60) 09/15/19 08:00 Hgb 13.5 GM/dL (11.7-16.9) 09/15/19 08:00 Hct 40.0 % (35.4-49) D 09/15/19 08:00 MCV 95.9 fl (80-96) 09/15/19 08:00 MCH 32.2 pg (25.7-33.7) D 09/15/19 08:00 MCHC 33.6 g/dl (32.0-35.9) 09/15/19 08:00 RDW 13.3 % (11.9-15.9) D 09/15/19 08:00 Plt Count 289 K/MM3 (134-434) D 09/15/19 08:00 MPV 7.6 fl (7.5-11.1) 09/15/19 08:00 Sodium 144 mmol/L (136-145) 09/15/19 08:00 Potassium 4.0 mmol/L (3.5-5.1) 09/15/19 08:00 Chloride 113 mmol/L (98-107) H 09/15/19 08:00 Carbon Dioxide 23 mmol/L (21-32) 09/15/19 08:00 Anion Gap 8 MMOL/L (8-16) 09/15/19 08:00 BUN 12.8 mg/dL (7-18) 09/15/19 08:00 Creatinine 1.2 mg/dL (0.55-1.3) 09/15/19 08:00 Est GFR (CKD-EPI)AfAm 79.53 09/15/19 08:00 Est GFR (CKD-EPI)NonAf 68.62 09/15/19 08:00 Random Glucose 118 mg/dL (74-106) H 09/15/19 08:00 Calcium 8.6 mg/dL (8.5-10.1) 09/15/19 08:00 Total Bilirubin 0.9 mg/dL (0.2-1) 09/15/19 08:00 AST 19 U/L (15-37) 09/15/19 08:00 ALT 18 U/L (13-61) 09/15/19 08:00 Alkaline Phosphatase 82 U/L (45-117) 09/15/19 08:00 Total Protein 5.8 g/dl (6.4-8.2) L 09/15/19 08:00 Albumin 3.2 g/dl (3.4-5.0) L 09/15/19 08:00 RPR Titer Nonreactive (NONREACTIVE) 09/15/19 08:00 Labs noted. Pertinent Admission Physical Exam Findings: withdrawal symptoms. - Treatment Hospital Course: Detox Protocol Followed, Detoxed Safely, Responded well, Discharged Condition Good - Medication Discharge Medications: Ambulatory Orders NK [No Known Home Medication] 09/14/19 - Diagnosis (1) Alcohol dependence Status: Acute (2) Hydrocephalus Status: Acute (3) Marijuana abuse Status: Acute (4) Nicotine dependence Status: Acute Qualifiers: Nicotine product type: cigarettes Substance use status: in withdrawal Qualified Code(s): F17.213 - Nicotine dependence, cigarettes, with withdrawal (5) Alcohol dependence with uncomplicated withdrawal Status: Chronic (6) CAD (coronary artery disease) Status: Chronic (7) Cannabis dependence, uncomplicated Status: Chronic (8) Cocaine dependence, uncomplicated Status: Chronic - AMA Did Patient Leave Against Medical Advice: No
== END 2019-09-18 10:01 | disposition home or self-care (01) | DRG 774 ==
LOC: YASAS 16:47 → Y6N 18:51
PROVIDERS: ADMIT Allergy & Immunology; ATTEND Allergy & Immunology
PROC: HZ2ZZZZ Detoxification Services for Substance Abuse Treatment (ICD-10-PCS; principal; 2019-09-14)
DX: F10.230 Alcohol dependence with withdrawal, uncomplicated (principal); F14.20 Cocaine dependence, uncomplicated; F12.10 Cannabis abuse, uncomplicated; F17.213 Nicotine dependence, cigarettes, with withdrawal; I25.10 Atherosclerotic heart disease of native coronary artery without angina pectoris; G91.9 Hydrocephalus, unspecified; R26.2 Difficulty in walking, not elsewhere classified; Z99.89 Dependence on other enabling machines and devices; Z86.73 Personal history of transient ischemic attack (TIA), and cerebral infarction without residual deficits; Z95.1 Presence of aortocoronary bypass graft
CPT/HCPCS: 36415; 80053; 85027; 86593; 93005; 93010

== ENCOUNTER 2019-10-27 09:16 | Inpatient (IN) | payer OTHER ==
--- NOTE | 2019-10-27 10:57 | HP ---
CIWA Score Nausea/Vomitin-Mild Nausea/No Vomiting Muscle Tremors: None Anxiety: 2 Agitation: 1-Slight > Activity Paroxysmal Sweats: 3 Orientation: 2-Disoriented Date<2 days Tacttile Disturbances: 0-None Auditory Disturbances: 3-Moderate Harsh/Frighten Visual Disturbances: 3-Moderate Sensitivity Headache: 0-None Present CIWA-Ar Total Score: 15 - Admission Criteria OASAS Guidelines: Admission for Medically Managed Detox: Requires at least one of the followin. CIWA greater than 12 2. Seizures within the past 24 hours 3. Delirium tremens within the past 24 hours 4. Hallucinations within the past 24 hours 5. Acute intervention needed for co occurring medical disorder 6. Acute intervention needed for co occurring psychiatric disorder 7. Severe withdrawal that cannot be handled at a lower level of care (continued vomiting, continued diarrhea, abnormal vital signs) requiring intravenous medication and/or fluids 8. Admitting History and Physical - Admission Chief Complaint: Mr. Johnson presents asking for detox from alcohol because "the way my body is feeling I knew I needed to come before I pass out" History of Present Illness: Mr. Johnson is a 54 yo gentleman with a PMH of CAD, CVA and HTN who presents requesting detox from alcohol. He admits to noncompliance with his antihypertensive medication and daily ASA. He drinks Vodka, up to 1/2 pint daily and drinks beers 6 pack several days per week. He last drank yesterday. He began drinking at the age of 17 y. He denies having blackouts or seizures in the context of drinking or withdrawal. He describes shakiness when not drinking. He has had visual hallucinations recently, 2 days ago he saw a "witch doctor" in the room. Marijuana use began at the age of 17 y, last used more than 30 days ago. He smokes 4 blunts when available. He sniffs or smokes cocaine, up to 2 grams daily, last use last night and first use age 19 y. History Source: Patient Limitations to Obtaining History: Poor Historian - Past Medical History [employer]IEF: Yes: CVA (with left lower extremity weaknee) Cardiovascular: Yes: CAD Renal/: Yes: Other (Frequency) Heme/Onc: Yes: Anemia, Thrombocytopenia Psych: Yes: Addictions Musculoskeletal: Yes: Other (pain left great toe, stubbed toe a few mos ago) Dermatology: Yes: Other (dry skin lower extremities eyal) - Past Surgical History Past Surgical History: Yes: None - Smoking History Smoking history: Current every day smoker Have you smoked in the past 12 months: Yes Aproximately how many cigarettes per day: 2 - Alcohol/Substance Use Hx Alcohol Use: Yes Number of Drinks Daily: 12 (1/2 pint Vodka and 6 pack of beer maximum daily intake) History of Substance Use: reports: Cocaine, Marijuana - Social History Usual Living Arrangement: Yes: Other (homeless) Do you think of yourself as: Straight/Heterosexual Occupation: unemployed, former [employer] in 1997 History of Recent Travel: No Admission ROS [facility] Chief Complaint: Mr. Johnson presents asking for detox from alcohol Allergies/Adverse Reactions: Allergies Allergy/AdvReac Type Severity Reaction Status Date / Time No Known Allergies Allergy Verified 09/14/19 18:55 Exam Limitations: No Limitations - Ebola screening Have you traveled outside of the country in the last 21 days: No Have you had contact with anyone from an Ebola affected area: No Have you been sick,other than usual withdrawal symptoms: No Do you have a fever: No - Review of Systems Constitutional: No Symptoms Reported EENT: reports: No Symptoms Reported Respiratory: reports: No Symptoms reported Cardiac: reports: No Symptoms Reported GI: reports: No Symptoms Reported : reports: Frequency Musculoskeletal: reports: No Symptoms Reported, Back Pain, Other (left great toe pain) Integumentary: reports: No Symptoms Reported Neuro: reports: No Symptoms reported Endocrine: reports: Increased Urine Hematology: reports: Anemia Psychiatric: reports: No Sypmtoms Reported Patient History - Patient Medical History Hx Anemia: Yes Hx Asthma: No Hx Chronic Obstructive Pulmonary Disease (COPD): No Hx Cancer: No Hx Cardiac Disorders: Yes (Triple heart bypass) Hx Congestive Heart Failure: No Hx Hypertension: No Hx Hypercholesterolemia: No Hx Pacemaker: No HX Cerebrovascular Accident: Yes (walks with cane.) Hx Seizures: No Hx Dementia: No Hx Diabetes: No Hx Gastrointestinal Disorders: No Hx Liver Disease: No Hx Genitourinary Disorders: No Hx Sexually Transmitted Disorders: No Hx Renal Disease (ESRD): No Hx Thyroid Disease: No Hx Human Immunodeficiency Virus (HIV): No Hx Hepatitis C: No Hx Depression: No Hx Suicide Attempt: No Hx Bipolar Disorder: No Hx Schizophrenia: No - Patient Surgical History Past Surgical History: Yes Hx Neurologic Surgery: No Hx Cataract Extraction: No Hx Cardiac Surgery: No Hx Lung Surgery: No Hx Breast Surgery: No Hx Breast Biopsy: No Hx Abdominal Surgery: No Hx Appendectomy: No Hx Cholecystectomy: No Hx Genitourinary Surgery: No Hx Section: No Hx Orthopedic Surgery: Yes (left pinky tendon repair with contracture) Other Surgical History: CARDIAC ANGIOGRAPHY-2008 - PPD History Date: 11/25/14 - Reproductive History Patient is a Female of Child Bearing Age (11 -55 yrs old): No - Smoking Cessation Smoking history: Current every day smoker Have you smoked in the past 12 months: Yes Aproximately how many cigarettes per day: 2 Cigars Per Day: 0 Hx Chewing Tobacco Use: No Initiated information on smoking cessation: Yes 'Breaking Loose' booklet given: 10/27/19 - Substance & Tx. History Hx Alcohol Use: Yes Hx Substance Use: Yes Substance Use Type: Alcohol, Cocaine, Marijuana Hx Substance Use Treatment: Yes - Substances abused Alcohol Substance route: Oral Frequency: Daily Amount used: 1/2 pint Vodka daily, 6 pack of beer daily Age of first use: 17 Date of last use: 10/26/19 Cocaine Substance route: Smoking Frequency: 3-6 times per week Amount used: .5 to 1 gram daily Age of first use: 19 Date of last use: 10/26/19 Marijuana/Hashish Substance route: Smoking Frequency: No use in 30 days Amount used: 4 blunts Age of first use: 17 Date of last use: 09/26/19 Admission Physical Exam [facility] - Physical General Appearance: Yes: Disheveled, Other (body odor, possibly urine) HEENTM: Yes: Within Normal Limits Respiratory: Yes: Within Normal Limits Neck: Yes: Within Normal Limits Breast: Yes: Breast Exam Deferred Cardiology: Yes: Regular Rate, S1, S2 Abdominal: Yes: Tenderness, Other (right upper quadrant, mild) Genitourinary: Yes: Within Normal Limits Back: Yes: Normal Inspection Musculoskeletal: Yes: Other (4 mm abrasion left great toe, dorsal surface) Extremities: Yes: Inflammation (as above, left great toe) Neurological: Yes: Other (Mild right facial with asymmetric smile No focal weakness, no drift UE, nl tone Sensation: intact LT Reflexes: 3+ UE, with finger flexors, ? Keller's bilaterally, absent AJs) Integumentary: Yes: Other (abrasion left great toe ~ 4 mm dorsum, tender) Lymphatic: Yes: Within Normal Limits Screened but not Admitted - Documentation of Visit Screened but not Admitted: No Breathalyzer - Breathalyzer Breathalyzer: 0 Urine Drug Screen - Test Device Lot number: [id number] Expiration date: 04/26/21 - Control Is test valid?: Yes - Results Drug screen NEGATIVE: No Urine drug screen results: [facility]IE-Cocaine Inpatient Rehab Admission - Rehab Decision to Admit Inpatient rehab admission?: No
[2019-10-27] MEDS ORDERED: chlordiazePOXIDE HCL 25 MG CAPSULE PO PRN (11:17)
[2019-10-27] MEDS ORDERED: BISMUTH SUBSALICYLATE 262 MG/15 ML BTL PO PRN (11:22)
[2019-10-27] MEDS ORDERED: MAGNESIUM CITRATE 300 ML BOTTLE PO PRN (11:22)
[2019-10-27] MEDS ORDERED: MAGNESIUM HYDROX 2400MG/30ML ORAL SUSPENSION 30 ML CUP PO PRN (11:22)
[2019-10-27] MEDS ORDERED: IBUPROFEN 400 MG TABLET (FP) PO PRN (11:22)
[2019-10-27] MEDS ORDERED: MENTHOL/PHENOL 1 EACH UD MM PRN (11:22)
[2019-10-27] MEDS ORDERED: hydrOXYzine PAMOATE 25 MG CAPSULE (FP) PO PRN (11:22)
[2019-10-27] MEDS ORDERED: MAG HYDROX/AL HYDROX/SIMETH 30 ML UNIT-DOSE CUP PO PRN (11:22)
[2019-10-27] MEDS ORDERED: ACETAMINOPHEN 325 MG TABLET (FP) PO PRN ×2 (11:22)
[2019-10-27 11:43] VITALS: BMI 23.1
[2019-10-27] MEDS: NICOTINE 7 MG/24 HOURS TOPICAL PATCH TD SCH (13:05)
[2019-10-27 16:00] LABS: HEMATOCRIT 42.6 % (35.4-49); HEMOGLOBIN 14.4 GM/dL (11.7-16.9); MCH 32.3 pg (25.7-33.7); MCHC 33.8 g/dl (32.0-35.9); MEAN CELL VOLUME 95.7 fl (80-96); MEAN PLT VOLUME 7.6 fl (7.5-11.1); PLATELET COUNT 286 K/MM3 (134-434); RBC 4.44 M/mm3 (4.00-5.60); RDW 13.4 % (11.9-15.9); WHITE BLOOD COUNT 6.7 K/mm3 (4.0-10.0)
[2019-10-27 16:07] LABS: BILIRUBIN,TOTAL 0.5 mg/dL (0.2-1)
[2019-10-27] MEDS: THIAMINE HCL 100 MG TABLET (FP) PO SCH (22:39)
[2019-10-27] MEDS: chlordiazePOXIDE HCL 25 MG CAPSULE PO SCH (22:39)
[2019-10-27] MEDS: MELATONIN 5 MG TABLETS PO PRN (22:39)
[2019-10-28] MEDS: chlordiazePOXIDE HCL 25 MG CAPSULE PO SCH ×4 (07:06→22:14)
[2019-10-28] MEDS: NICOTINE 7 MG/24 HOURS TOPICAL PATCH TD SCH (10:51)
[2019-10-28] MEDS: PRENATAL VITAMINS W/ FOLIC ACID TABLET (FP) PO SCH (10:51)
[2019-10-28] MEDS ORDERED: FLU VACCINE QUAD 60 MCG/0.5 ML (MDV 19-20) IM ONE (12:00)
--- NOTE | 2019-10-28 12:23 | PN ---
[facility] CIWA - CIWA Score Nausea/Vomitin Muscle Tremors: None Anxiety: 1-Mildly Anxious Agitation: 0-Normal Activity Paroxysmal Sweats: 3 Orientation: 2-Disoriented Date<2 days Tacttile Disturbances: 0-None Auditory Disturbances: 0-None Visual Disturbances: 0-None Headache: 0-None Present CIWA-Ar Total Score: 11 S Progress Note (SOAP) Subjective: Pt states he vomited this am Objective: 10/28/19 12:21 Laboratory Last Values WBC 6.7 K/mm3 (4.0-10.0) 10/27/19 12:00 RBC 4.44 M/mm3 (4.00-5.60) 10/27/19 12:00 Hgb 14.4 GM/dL (11.7-16.9) 10/27/19 12:00 Hct 42.6 % (35.4-49) 10/27/19 12:00 MCV 95.7 fl (80-96) 10/27/19 12:00 MCH 32.3 pg (25.7-33.7) 10/27/19 12:00 MCHC 33.8 g/dl (32.0-35.9) 10/27/19 12:00 RDW 13.4 % (11.9-15.9) 10/27/19 12:00 Plt Count 286 K/MM3 (134-434) 10/27/19 12:00 MPV 7.6 fl (7.5-11.1) 10/27/19 12:00 Sodium 141 mmol/L (136-145) 10/27/19 12:00 Potassium 4.0 mmol/L (3.5-5.1) 10/27/19 12:00 Chloride 109 mmol/L (98-107) H 10/27/19 12:00 Carbon Dioxide 26 mmol/L (21-32) 10/27/19 12:00 Anion Gap 6 MMOL/L (8-16) L 10/27/19 12:00 BUN 16.0 mg/dL (7-18) 10/27/19 12:00 Creatinine 1.0 mg/dL (0.55-1.3) 10/27/19 12:00 Est GFR (CKD-EPI)AfAm 99.15 10/27/19 12:00 Est GFR (CKD-EPI)NonAf 85.55 10/27/19 12:00 Random Glucose 119 mg/dL (74-106) H 10/27/19 12:00 Calcium 9.0 mg/dL (8.5-10.1) 10/27/19 12:00 Total Bilirubin 0.5 mg/dL (0.2-1) 10/27/19 12:00 AST 17 U/L (15-37) 10/27/19 12:00 ALT 19 U/L (13-61) 10/27/19 12:00 Alkaline Phosphatase 93 U/L (45-117) 10/27/19 12:00 Total Protein 7.0 g/dl (6.4-8.2) 10/27/19 12:00 Albumin 4.0 g/dl (3.4-5.0) 10/27/19 12:00 RPR Titer Nonreactive (NONREACTIVE) 10/27/19 12:00 Vital Signs Temperature 97.9 F 10/28/19 08:39 Pulse Rate 90 10/28/19 08:39 Respiratory Rate 18 10/28/19 08:39 Blood Pressure 121/85 10/28/19 08:39 O2 Sat by Pulse Oximetry (%) Gnl WDWN, in no distress MS: awake, alert, follows commands CN: EOMI Motor: ambulates normally Assessment: 10/28/19 12:22 1. Alchol withdrawal, uncomplicated Plan: 1. continue alcohol withdrawl protocol
[2019-10-28] MEDS: THIAMINE HCL 100 MG TABLET (FP) PO SCH (22:14)
[2019-10-28] MEDS: MELATONIN 5 MG TABLETS PO PRN (22:14)
[2019-10-28] MEDS: METHOCARBAMOL 500 MG TABLET PO PRN (22:15)
[2019-10-29] MEDS: chlordiazePOXIDE HCL 25 MG CAPSULE PO SCH ×3 (06:59→17:41)
[2019-10-29] MEDS: NICOTINE 7 MG/24 HOURS TOPICAL PATCH TD SCH (10:41)
[2019-10-29] MEDS: PRENATAL VITAMINS W/ FOLIC ACID TABLET (FP) PO SCH (10:43)
[2019-10-29] MEDS: METHOCARBAMOL 500 MG TABLET PO PRN (10:43)
--- NOTE | 2019-10-29 11:47 | PN ---
S CIWA - CIWA Score Nausea/Vomitin-No Nausea/No Vomiting Muscle Tremors: 2 Anxiety: 3 Agitation: 0-Normal Activity Paroxysmal Sweats: 3 Orientation: 0-Oriented Tacttile Disturbances: 0-None Auditory Disturbances: 0-None Visual Disturbances: 0-None Headache: 2-Mild CIWA-Ar Total Score: 10 S Progress Note (SOAP) Subjective: c/o sweats, anxiety, and headache. Objective: 10/29/19 11:46 Vital Signs 10/29/19 10/29/19 06:40 09:23 Temperature 97.4 F L 98.7 F Pulse Rate 84 99 H Respiratory 16 18 Rate Blood Pressure 110/73 114/78 Laboratory Last Values WBC 6.7 K/mm3 (4.0-10.0) 10/27/19 12:00 RBC 4.44 M/mm3 (4.00-5.60) 10/27/19 12:00 Hgb 14.4 GM/dL (11.7-16.9) 10/27/19 12:00 Hct 42.6 % (35.4-49) 10/27/19 12:00 MCV 95.7 fl (80-96) 10/27/19 12:00 MCH 32.3 pg (25.7-33.7) 10/27/19 12:00 MCHC 33.8 g/dl (32.0-35.9) 10/27/19 12:00 RDW 13.4 % (11.9-15.9) 10/27/19 12:00 Plt Count 286 K/MM3 (134-434) 10/27/19 12:00 MPV 7.6 fl (7.5-11.1) 10/27/19 12:00 Sodium 141 mmol/L (136-145) 10/27/19 12:00 Potassium 4.0 mmol/L (3.5-5.1) 10/27/19 12:00 Chloride 109 mmol/L (98-107) H 10/27/19 12:00 Carbon Dioxide 26 mmol/L (21-32) 10/27/19 12:00 Anion Gap 6 MMOL/L (8-16) L 10/27/19 12:00 BUN 16.0 mg/dL (7-18) 10/27/19 12:00 Creatinine 1.0 mg/dL (0.55-1.3) 10/27/19 12:00 Est GFR (CKD-EPI)AfAm 99.15 10/27/19 12:00 Est GFR (CKD-EPI)NonAf 85.55 10/27/19 12:00 Random Glucose 119 mg/dL (74-106) H 10/27/19 12:00 Calcium 9.0 mg/dL (8.5-10.1) 10/27/19 12:00 Total Bilirubin 0.5 mg/dL (0.2-1) 10/27/19 12:00 AST 17 U/L (15-37) 10/27/19 12:00 ALT 19 U/L (13-61) 10/27/19 12:00 Alkaline Phosphatase 93 U/L (45-117) 10/27/19 12:00 Total Protein 7.0 g/dl (6.4-8.2) 10/27/19 12:00 Albumin 4.0 g/dl (3.4-5.0) 10/27/19 12:00 RPR Titer Nonreactive (NONREACTIVE) 10/27/19 12:00 Labs noted Assessment: 10/29/19 11:47 AOX3, in no acute respiratory distress. Full ROM, ambulating in the unit. Withdrawal symptoms. Plan: continue detox.
[2019-10-29] MEDS ORDERED: OXYMETAZOLINE 0.05% NASAL SOLUTION 15 ML BOTTLE NS PRN (17:45)
--- NOTE | 2019-10-29 17:46 | PN ---
[facility] Progress Note Note: pt w/ c/o rhinorrhea Vital Signs - 24 hr 10/28/19 10/29/19 10/29/19 20:27 03:30 06:40 Temperature 97.8 F 97.4 F L Pulse Rate 87 84 Respiratory 18 18 16 Rate Blood Pressure 114/74 110/73 10/29/19 10/29/19 09:23 13:57 Temperature 98.7 F 98.1 F Pulse Rate 99 H 95 H Respiratory 18 18 Rate Blood Pressure 114/78 114/71 P :afrin ordered x1 d.
[2019-10-29] MEDS ORDERED: chlordiazePOXIDE HCL 25 MG CAPSULE PO SCH (21:46)
[2019-10-29] MEDS: THIAMINE HCL 100 MG TABLET (FP) PO SCH (22:38)
[2019-10-29] MEDS ORDERED: chlordiazePOXIDE HCL 10 MG CAPSULE PO SCH (22:38)
[2019-10-30] MEDS ORDERED: chlordiazePOXIDE HCL 10 MG CAPSULE PO PRN
[2019-10-30] MEDS: chlordiazePOXIDE HCL 10 MG CAPSULE PO SCH ×3 (06:17→18:23)
[2019-10-30] MEDS: NICOTINE 7 MG/24 HOURS TOPICAL PATCH TD SCH (10:30)
[2019-10-30] MEDS: PRENATAL VITAMINS W/ FOLIC ACID TABLET (FP) PO SCH (11:09)
--- NOTE | 2019-10-30 13:53 | PN ---
[facility] Progress Note Note: 54 years old male admitted on 10/27/19 for alcohol withdrawal sx management treating with librium detox regimen ambulating with cane related CVA 2017 left arm and leg weakness patient fell around 9 am this morning stated that he slip on his left foot and sitting on his buttock denies pain no viable injury noted patient seems confused and ataxia writer producer can not completed ciwa for today Vital Signs Temperature 97.7 F 10/30/19 08:55 Pulse Rate 98 H 10/30/19 08:55 Respiratory Rate 17 10/30/19 08:55 Blood Pressure 118/78 10/30/19 08:55 O2 Sat by Pulse Oximetry (%) Laboratory Last Values WBC 6.7 K/mm3 (4.0-10.0) 10/27/19 12:00 RBC 4.44 M/mm3 (4.00-5.60) 10/27/19 12:00 Hgb 14.4 GM/dL (11.7-16.9) 10/27/19 12:00 Hct 42.6 % (35.4-49) 10/27/19 12:00 MCV 95.7 fl (80-96) 10/27/19 12:00 MCH 32.3 pg (25.7-33.7) 10/27/19 12:00 MCHC 33.8 g/dl (32.0-35.9) 10/27/19 12:00 RDW 13.4 % (11.9-15.9) 10/27/19 12:00 Plt Count 286 K/MM3 (134-434) 10/27/19 12:00 MPV 7.6 fl (7.5-11.1) 10/27/19 12:00 Sodium 141 mmol/L (136-145) 10/27/19 12:00 Potassium 4.0 mmol/L (3.5-5.1) 10/27/19 12:00 Chloride 109 mmol/L (98-107) H 10/27/19 12:00 Carbon Dioxide 26 mmol/L (21-32) 10/27/19 12:00 Anion Gap 6 MMOL/L (8-16) L 10/27/19 12:00 BUN 16.0 mg/dL (7-18) 10/27/19 12:00 Creatinine 1.0 mg/dL (0.55-1.3) 10/27/19 12:00 Est GFR (CKD-EPI)AfAm 99.15 10/27/19 12:00 Est GFR (CKD-EPI)NonAf 85.55 10/27/19 12:00 Random Glucose 119 mg/dL (74-106) H 10/27/19 12:00 Calcium 9.0 mg/dL (8.5-10.1) 10/27/19 12:00 Total Bilirubin 0.5 mg/dL (0.2-1) 10/27/19 12:00 AST 17 U/L (15-37) 10/27/19 12:00 ALT 19 U/L (13-61) 10/27/19 12:00 Alkaline Phosphatase 93 U/L (45-117) 10/27/19 12:00 Total Protein 7.0 g/dl (6.4-8.2) 10/27/19 12:00 Albumin 4.0 g/dl (3.4-5.0) 10/27/19 12:00 RPR Titer Nonreactive (NONREACTIVE) 10/27/19 12:00 lab noted alcohol withdrawal patient received 10 mg of libirum round 6 am today rule out cerebral dysfunction due to disturbed gait urine incontinence and other neurodegenerative conditions librium regimen transferred to ER for further medical evaluation information presents to Dr Boone around 1041 am proposition Patient may return to [facility] for alcohol detox or rehab in [place]
--- NOTE | 2019-10-30 17:59 | DS ---
[facility] Detox Discharge Summary Admission Date: 10/27/19 - Physical Exam Results Vital Signs: Vital Signs Temperature 97.7 F 10/30/19 08:55 Pulse Rate 98 H 10/30/19 08:55 Respiratory Rate 17 10/30/19 08:55 Blood Pressure 118/78 10/30/19 08:55 O2 Sat by Pulse Oximetry (%) Pertinent Admission Physical Exam Findings: pt returned from the hospital and insisted he wanted to leave " I have things to do " , refused to stay to complete detox . Risks of leaving were discussed w pt who was adamant about leaving . Nursing staff aware. - Medication Discharge Medications: Ambulatory Orders Cyanocobalamin [Vitamin B12 -] 1,000 mcg PO DAILY #7 tablet 10/30/19 - AMA Did Patient Leave Against Medical Advice: Yes (pt returned from the hospital and states he wanted to leave . )
[2019-10-30 19:29] VITALS: BP 118/78; PULSE 98; TEMP 97.7
[2019-10-31] MEDS ORDERED: chlordiazePOXIDE HCL 10 MG CAPSULE PO SCH (05:00)
[2019-10-31] MEDS ORDERED: chlordiazePOXIDE 5 MG CAPSULE PO SCH (05:00)
[2019-11-01] MEDS ORDERED: chlordiazePOXIDE 5 MG CAPSULE PO ONE (05:00)
[2019-11-01] MEDS ORDERED: chlordiazePOXIDE HCL 10 MG CAPSULE PO ONE (05:00)
== END 2019-10-30 19:00 | disposition left against medical advice (07) | DRG 770 ==
LOC: YASAS 09:16 → Y3N 11:38
PROVIDERS: ADMIT Allergy & Immunology; ATTEND Allergy & Immunology
PROC: HZ2ZZZZ Detoxification Services for Substance Abuse Treatment (ICD-10-PCS; principal; 2019-10-27)
DX: F10.230 Alcohol dependence with withdrawal, uncomplicated (principal); F17.210 Nicotine dependence, cigarettes, uncomplicated; I10 Essential (primary) hypertension; I25.10 Atherosclerotic heart disease of native coronary artery without angina pectoris; I69.354 Hemiplegia and hemiparesis following cerebral infarction affecting left non-dominant side; R26.2 Difficulty in walking, not elsewhere classified; Z99.89 Dependence on other enabling machines and devices; Z95.1 Presence of aortocoronary bypass graft; Z59.0 Homelessness
CPT/HCPCS: 36415; 80053; 85027; 86593

== ENCOUNTER 2019-10-30 11:23 | Emergency (ER) | payer OTHER ==
--- NOTE | 2019-10-30 11:33 | PDOC ---
History of Present Illness - General Chief Complaint: Injury Stated Complaint: FALL Time Seen by Provider: 10/30/19 11:33 - History of Present Illness Initial Comments: 10/30/19 11:45 HPI: 54 y/o with hx of CAD, CVA with residual left sided weakness, HTN, polysubstance abuse BIBEMS from [facility] following a fall. Patient states he slipped and fell on to his left side. Patient reports minimal non specific pain on his left side. States he was able to get up without assist and ambulatory at the scene. Denies LOC, head trauma, BILLINGS, LH, chest pain, abd pain, SOB. Of note he reports increased urinary problems over the past 1 month including urinary urgency and occasional incontinence; denies memory issues PMHx: as noted above ROS: as noted SHx: Denies tobacco use; no alcohol use; no rec drugs Allergies: NKDA ROS: GENERAL/CONSTITUTIONAL: No fever or chills. No weakness. HEAD, EYES, EARS, NOSE AND THROAT: No change in vision. No ear pain or discharge. No sore throat. CARDIOVASCULAR: No chest pain or shortness of breath RESPIRATORY: No cough, wheezing, or hemoptysis. GASTROINTESTINAL: No nausea, vomiting, diarrhea or constipation. GENITOURINARY: No dysuria, frequency, or change in urination. MUSCULOSKELETAL: No joint or muscle swelling or pain. No neck or back pain. SKIN: No rash NEUROLOGIC: No headache, vertigo, loss of consciousness, or change in strength/ sensation. ENDOCRINE: No increased thirst. No abnormal weight change HEMATOLOGIC/LYMPHATIC: No anemia, easy bleeding, or history of blood clots. ALLERGIC/IMMUNOLOGIC: No hives or skin allergy. PE: GENERAL: Awake, alert, and fully oriented, no acute distress HEAD: No signs of trauma, normocephalic, atraumatic EYES: EOMI, sclera anicteric, conjunctiva clear ENT: Auricles normal inspection, hearing grossly normal, nares patent, oropharynx clear without exudates. Moist mucosa NECK: Normal ROM, no lymphadenopathy LUNGS: No increased work of breathing, symmetrical chest rise, clear to auscultation bilaterally, no wheezes, crackles or rhonchi HEART: Regular rate, regular rhythm, normal S1 and S2, no murmur, peripheral pulses 2+ and equal bilaterally. ABDOMEN: Soft, nondistended, nontender, normoactive bowel sounds. No guarding, no rebound. No masses. No CVAT MUSCULOSKELETAL: FROM NEUROLOGICAL: Cranial nerves II through XII grossly intact. Normal speech, wide based gait, no focal sensorimotor deficits SKIN: Warm, Dry, normal turgor, no rashes or lesions noted Past History - Past Medical History Allergies/Adverse Reactions: Allergies Allergy/AdvReac Type Severity Reaction Status Date / Time No Known Allergies Allergy Verified 10/30/19 11:38 Home Medications: Ambulatory Orders Cyanocobalamin [Vitamin B12 -] 1,000 mcg PO DAILY #7 tablet 10/30/19 Anemia: Yes Asthma: No Cancer: No Cardiac Disorders: Yes (CVA) CVA: Yes (walks with cane.) COPD: No CHF: No Dementia: No Diabetes: No GI Disorders: No Disorders: No HTN: Yes Hypercholesterolemia: No Kidney Stones: No Liver Disease: No Seizures: No Thyroid Disease: No - Surgical History Abdominal Surgery: No Appendectomy: No Cardiac Surgery: No Cholecystectomy: No Lung Surgery: No Neurologic Surgery: No Orthopedic Surgery: Yes (left pinky tendon repair with contracture) - Reproductive History Testicular Surgery: No - Psycho Social/Smoking Cessation Hx Smoking History: Current every day smoker Have you smoked in the past 12 months: Yes Number of Cigarettes Smoked Daily: 2 Cigars Per Day: 0 'Breaking Loose' booklet given: 10/27/19 Hx Alcohol Use: Yes Drug/Substance Use Hx: Yes Substance Use Type: Alcohol, Cocaine, Marijuana Hx Substance Use Treatment: Yes ED Treatment Course - LABORATORY CBC & Chemistry Diagram: 10/30/19 13:35 10/30/19 13:35 Medical Decision Making - Medical Decision Making 10/30/19 15:53 54 y/o with hx of CAD, CVA with residual left sided weakness, HTN, polysubstance abuse BIBEMS from [facility] following a fall but with no current pain; reporting gait problems and urinary trouble in the past. VSS, AF. PE with wide based gait. Will ruleout CVA -CT head 10/30/19 15:54 CT with marked dilation of ventricles and concern for obstructive hydrocephalus unchanged from previous study; discussed with [facility] regarding previous transfer and patient not candidate at that time for surgical intervention Consulted Dr Bonilla for eval given concern for NPH; could also be do to chronic alcohol abuse, alcoholic induced peripheral neuropath, vitamin deficiencies Consulted Dr Henderson for eval; recommending acute intervention with detox and outpatient followup with LP for possible improvement of symptoms; potential candidacy for shunt depends on LP effect Will order folate and B12 10/30/19 15:57 B12 low; will replete and DC to [facility] with neuro and nsgy referrals and b12 prescription discussed with patient importance of followup; patient undersatnds and all questions were answered Discharge - Discharge Information Problems reviewed: Yes Clinical Impression/Diagnosis: Vitamin B12 deficiency Fall Qualifiers: Encounter type: initial encounter Qualified Code(s): W19.XXXA - Unspecified fall, initial encounter Hydrocephalus Qualifiers: Hydrocephalus type: unspecified Qualified Code(s): G91.9 - Hydrocephalus, unspecified - Additional Discharge Information Prescriptions: Cyanocobalamin [Vitamin B12 -] 1,000 mcg PO DAILY #7 tablet - Follow up/Referral Referrals: Jeramy Bonilla MD [Staff Physician] - Kris Henderson MD, FAANS [Staff Physician] - - Patient Discharge Instructions Patient Printed Discharge Instructions: Vitamin B12 Deficiency Additional Instructions: Additional Instructions: Please return to the emergency department with any new or worsening symptoms or concerns. Please follow up with your primary care physician within 72 hours. Please followup with the neurologist we have provided following your detox for followup regarding the fluid in your brain Please followup with the neurosurgeon we have provided for further evaluation Please take the vitamin b12 prescription because your levels were low - Post Discharge Activity
[2019-10-30 11:37] VITALS: BMI 23.1
[2019-10-30] MEDS ORDERED: ACETAMINOPHEN 325 MG TABLET (FP) PO ONE (11:44)
[2019-10-30] MEDS ORDERED: ACETAMINOPHEN 325 MG TABLET (FP) ONE (11:46)
--- NOTE | 2019-10-30 13:09 | PDOC ---
Documentation entered by Denice Chow SCRIBE, acting as scribe for Santiago Brock MD. Santiago Brock MD: This documentation has been prepared by the Claudine moore Nirvannie, SCRIBE, under my direction and personally reviewed by me in its entirety. I confirm that the documentation accurately reflects all work, treatment, procedures, and medical decision making performed by me. Attending Attestation - Resident Resident Name: Nikki Mora - ED Attending Attestation I have performed the following: I have examined & evaluated the patient, The case was reviewed & discussed with the resident, I agree w/resident's findings & plan, Exceptions are as noted - HPI HPI: 10/30/19 12:28 The patient is a year old male, with a significant past medical history of CAD, CVA (LLE residual weakness), HTN, Anemia, Thrombocytopenia, medication noncompliance, and polysubstance abuse (alcohol, cocaine, and heroin), who presents to the emergency department via EMS from [facility]. As per patient, he slipped and fell onto his left side this morning, prompting his arrival to the ED. Pt states that he has been feeling more unsteady recently. He denies any new weakness/numbness. He denies any LOC or head/neck trauma. He denies any urinary/bowel incontinence. He denies any recent fevers, chills, headache or dizziness. He denies any recent nausea, vomiting, diarrhea or constipation. He denies any recent chest pain or shortness of breath. Allergies: NKDA - Physicial Exam PE: 10/30/19 13:10 "GENERAL: Awake, alert, and fully oriented, in no acute distress. HEAD: No signs of trauma EYES: PERRLA, EOMI, sclera anicteric, conjunctiva clear ENT: Auricles normal inspection, hearing grossly normal, nares patent, oropharynx clear without exudates. Moist mucosa NECK: Nontender, no stepoffs, Normal ROM, supple, no lymphadenopathy, JVD, or masses LUNGS: Breath sounds equal, clear to auscultation bilaterally. No wheezes, and no crackles HEART: Regular rate and rhythm, normal S1 and S2, no murmurs, rubs or gallops ABDOMEN: Soft, nontender, normoactive bowel sounds. No guarding, no rebound. No masses EXTREMITIES: Normal range of motion, no edema. No clubbing or cyanosis. No cords, erythema, or tenderness NEUROLOGICAL: + mild ataxia, broad-based gait, Cranial nerves II through XII intact. 5/5 strength and sensation in all extremities, Normal speech, normal cerebellar function SKIN: Warm, Dry, normal turgor, no rashes or lesions noted. - Medical Decision Making 10/30/19 13:11 54 M with fall, found to be ataxic on exam with broad based gait. Has h/o hydrocephalus based on previous imaging. Was transferred to [facility] 02/2019 for similar problem, but unclear what happened at that time. - CT head - Labs - Neuro c/s 10/30/19 13:26 CT head shows severe hydrocephalus Per [facility] records, pt was transferred in 02/2019 for similar problem but was also found to have a GI bleed with Hb 4. Pt was treated for this but never had his hydrocephalus addressed. 10/30/19 14:[address] and Dr. Henderson consulted Dr. Henderson evaluated pt and recommends outpt management of hydrocephalus after pt completes detox. 10/30/19 15:31 B12 level low folate wnl Will DC with B12 supplements Pt is well appearing, with normal vitals. Clinically stable for DC at this time. I discussed the physical exam findings, ancillary test results and final diagnoses with the patient. I answered all of the patient's questions. The patient was satisfied with the care received and felt comfortable with the discharge plan and treatment plan. The patient agrees to follow up with the primary care physician within 24-72 hours.
[2019-10-30 14:07] LABS: HEMATOCRIT 41.8 % (35.4-49); HEMOGLOBIN 13.9 GM/dL (11.7-16.9); LYMPH % 24.7 % (8-40); MCH 32.1 pg (25.7-33.7); MCHC 33.3 g/dl (32.0-35.9); MEAN CELL VOLUME 96.2 fl (80-96); MEAN PLT VOLUME 7.4 fl (7.5-11.1); MONO % 4.5 % (3.8-10.2); NEUT % 66.8 % (42.8-82.8); PLATELET COUNT 231 K/MM3 (134-434); RBC 4.35 M/mm3 (4.00-5.60); RDW 13.4 % (11.9-15.9); WHITE BLOOD COUNT 5.6 K/mm3 (4.0-10.0)
[2019-10-30 14:22] LABS: INR 0.89 (0.83-1.09); PROTHROMBIN TIME (PATIENT) 10.5 SEC (9.7-13.0)
[2019-10-30 14:27] LABS: ALBUMIN 3.9 g/dl (3.4-5.0); BILIRUBIN,TOTAL 0.4 mg/dL (0.2-1); BLOOD UREA NITROGEN 18.2 mg/dL (7-18); CALCIUM 8.9 mg/dL (8.5-10.1); CREATININE 0.9 mg/dL (0.55-1.3); POTASSIUM 4.6 mmol/L (3.5-5.1); TOT PROT 6.8 g/dl (6.4-8.2)
[2019-10-30] MEDS ORDERED: CYANOCOBALAMIN (VITAMIN B-12) 1000 MCG/1 ML VIAL IM ONE (15:30)
[2019-10-30 16:10] VITALS: BP 113/78; PULSE 89; TEMP 98.5
--- NOTE | 2019-10-30 16:14 | CONSULT ---
Consult - text type - Consultation Consultation Note: NEUROSURGERY CONSULTATION Jose Johnson is a 54 year old male who has a history of EtOH abuse, CVA (Right brain/Left body), HTN, Anemia, Thrombocytopenia and Heroin/Cocaine use who is currently in the fourth day of admission to [facility] for detox and sustained a fall earlier today. He did not strike his head and did not lose consciousness. In an abundance of caution, he was brought to the [facility] ED for evaluation. The patient states that his gait is more unsteady recently and he has been having urinary accidents, although he attributes this to a "weak bladder" and difficulty getting to the bathroom in a timely manner. He walks with a cane in his Right hand and overall feels that his gait is largely unchanged. He hunches forwards and walks in a halting manner. On examination, he extinguishes to double simultaneous stimulation on the Left. There is no Pronator drift. Patient has mild to moderate dysmetria bilaterally. He denies headaches or visual changes. CT Head is unremarkable for acute traumatic pathology. There is notable ventriculomegally including the lateral ventricles, third ventricle, aqueduct and rostral 4h ventricle although the caudal aspect is not particularly enlarged suggesting possible arachnoid web. No mass lesion identified and no extraaxial blood collections noted. Patient manifesting some symptoms consistent with NPH, however, he has multiple confounding medical and Neurological comorbid conditions and is not an ideal candidate for CSF diversion procedures. He had a Head CT one year ago during a similar visit to the ED and official reading indicates that there is no identified change or progression of the hydrocephalus. There is no obvious transependymal edema. When he presented last year he had an acute GI bleed and other active medical conditions which precluded further evaluation and treatment of his hydrocephalus. Semi-Elective MRI to evaluate for loculations in the fourth ventricle as well as possible Lumbar Puncture may be considered in the outpatient setting if the NPH diagnosis rises to the top of his list of acute medical concerns. Based upon these findings, the appropriateness of Elective CSF diversion/ Neurosurgical intervention may be evaluated. There is no acute Neurosurgical intervention indicated or planned. Although the patient may benefit from a CSF diversion procedure (TURNING SANDER TENDER shunt versus Endoscopic Third Ventriculostomy), he is not an ideal candidate. In the setting of Thrombocytopenia and acute treatment for polysubstance use, with a stable Head CT, there is no urgency to address this potential medical condition.
--- NOTE | 2019-10-31 09:20 | EKG ---
Test Reason : Blood Pressure : / mmHG Vent. Rate : 074 BPM Atrial Rate : 074 BPM P-R Int : 154 ms QRS Dur : 078 ms QT Int : 346 ms P-R-T Axes : 066 040 031 degrees QTc Int : 384 ms NORMAL SINUS RHYTHM NORMAL ECG WHEN COMPARED WITH ECG OF 16-SEP-2019 01:48, NO SIGNIFICANT CHANGE WAS FOUND Confirmed by Marilyn Patricia ([id number]) on 10/31/2019 9:20:38 AM Referred By: Confirmed By:Marilyn Patricia
== END 2019-10-30 16:10 | disposition home or self-care (01) ==
LOC: JER 11:23
PROC: 3E023GC Introduction of Other Therapeutic Substance into Muscle, Percutaneous Approach (ICD-10-PCS; principal; 2019-10-30)
DX: E53.8 Deficiency of other specified B group vitamins (principal); G91.8 Other hydrocephalus; R26.81 Unsteadiness on feet; I25.10 Atherosclerotic heart disease of native coronary artery without angina pectoris; I10 Essential (primary) hypertension; I69.854 Hemiplegia and hemiparesis following other cerebrovascular disease affecting left non-dominant side; I69.893 Ataxia following other cerebrovascular disease; D69.6 Thrombocytopenia, unspecified; F17.210 Nicotine dependence, cigarettes, uncomplicated; F10.10 Alcohol abuse, uncomplicated; F11.10 Opioid abuse, uncomplicated; F14.20 Cocaine dependence, uncomplicated; Z99.89 Dependence on other enabling machines and devices
CPT/HCPCS: 36415; 70450-TC; 80053; 82607; 82746; 85025; 85610; 85730; 86850; 86900; 86901; 93005; 93010; 96372; 99282-25

== ENCOUNTER 2022-11-24 09:37 | Inpatient (IN) | payer OTHER ==
[2022-11-24 10:21] VITALS: BMI 23.7
[2022-11-24] MEDS ORDERED: BISMUTH SUBSALICYLATE 524 MG/30 ML PO PRN (15:53)
[2022-11-24] MEDS ORDERED: DICYCLOMINE HCL 10 MG CAPSULE PO PRN (15:53)
[2022-11-24] MEDS ORDERED: hydrOXYzine PAMOATE 25 MG CAPSULE (FP) PO PRN (15:53)
[2022-11-24] MEDS ORDERED: IBUPROFEN 400 MG TABLET (FP) PO PRN (15:53)
[2022-11-24] MEDS ORDERED: LORazepam 1 MG TABLET PO PRN (15:53)
[2022-11-24] MEDS ORDERED: MAG HYDROX/AL HYDROX/SIMETH 30 ML UNIT-DOSE CUP PO PRN (15:53)
[2022-11-24] MEDS ORDERED: NALOXONE HCL (KLOXXADO) 8 MG SPRAY NS PRN (15:53)
[2022-11-24] MEDS ORDERED: METHOCARBAMOL 500 MG TABLET PO PRN (15:53)
[2022-11-24] MEDS ORDERED: NICOTINE 10 MG CARTRIDGE (INHALER) IH PRN (15:53)
[2022-11-24] MEDS ORDERED: MAGNESIUM HYDROX 2400MG/30ML ORAL SUSPENSION 30 ML CUP PO PRN (15:53)
[2022-11-24] MEDS ORDERED: POLYETHYLENE GLYCOL (HEALTHYLAX) 3350 17 GM PACKET PO PRN (15:53)
[2022-11-24] MEDS ORDERED: ACETAMINOPHEN 325 MG TABLET (FP) PO PRN ×2 (15:53)
[2022-11-24] MEDS ORDERED: NICOTINE 21 MG/24 HOURS TOPICAL PATCH TD PRN (15:53)
[2022-11-24] MEDS ORDERED: ONDANSETRON *ODT* 4 MG TABLET SL PRN (15:53)
[2022-11-24] MEDS ORDERED: IBUPROFEN 600 MG TABLET (FP) PO PRN (15:53)
[2022-11-24] MEDS ORDERED: BENZOCAINE/MENTHOL (CHLORASEPTIC ) LOZENGE MM PRN (15:53)
[2022-11-24] MEDS ORDERED: LOPERAMIDE HCL 2 MG CAPSULE PO PRN (15:53)
[2022-11-24] MEDS ORDERED: NICOTINE POLACRILEX 4 MG GUM BUC PRN (15:53)
[2022-11-24] MEDS: PRENATAL VITAMINS W/ FOLIC ACID TABLET (FP) PO SCH (17:21)
[2022-11-24] MEDS: THIAMINE HCL 100 MG TABLET (FP) PO SCH (23:00)
[2022-11-24] MEDS: MELATONIN 5 MG TABLETS PO SCH (23:00)
[2022-11-24] MEDS: LORazepam 2 MG TABLET PO SCH (23:39)
[2022-11-25] MEDS: LORazepam 2 MG TABLET PO SCH ×4 (05:55→22:32)
[2022-11-25] MEDS: PRENATAL VITAMINS W/ FOLIC ACID TABLET (FP) PO SCH (10:36)
[2022-11-25 12:26] LABS: HEMATOCRIT 26.6 % (35.4-49); HEMOGLOBIN 9.2 GM/dL (11.7-16.9); MCH 39.4 pg (25.7-33.7); MCHC 34.8 g/dl (32.0-35.9); MEAN CELL VOLUME 113.1 fl (80-96); MEAN PLT VOLUME 9.5 fl (7.5-11.1); PLATELET COUNT 165 10^3/uL (134-434); RBC 2.35 M/mm3 (4.00-5.60); RDW 25.5 % (11.9-15.9); WHITE BLOOD COUNT 5.9 K/mm3 (4.0-10.0)
[2022-11-25 12:45] LABS: CREATININE 0.8 mg/dL (0.55-1.3)
[2022-11-25 12:49] LABS: ALBUMIN 3.4 g/dl (3.4-5.0); CALCIUM 8.3 mg/dL (8.5-10.1)
[2022-11-25 12:50] LABS: BLOOD UREA NITROGEN 14.1 mg/dL (7-18)
[2022-11-25 12:54] LABS: BILIRUBIN,TOTAL 0.5 mg/dL (0.2-1); TOT PROT 6.1 g/dl (6.4-8.2)
[2022-11-25] MEDS: MELATONIN 5 MG TABLETS PO SCH (22:32)
[2022-11-25] MEDS: THIAMINE HCL 100 MG TABLET (FP) PO SCH (22:32)
[2022-11-26] MEDS: LORazepam 1 MG TABLET PO SCH ×4 (06:42→22:19)
[2022-11-26] MEDS: PRENATAL VITAMINS W/ FOLIC ACID TABLET (FP) PO SCH (10:49)
[2022-11-26] MEDS: CYANOCOBALAMIN 1,000 MCG TABLET (FP) PO SCH (10:49)
[2022-11-26] MEDS: LACTULOSE 20 GM/30 ML UDC (FOR ORAL USE ONLY) PO SCH ×4 (10:50→22:18)
[2022-11-26] MEDS: THIAMINE HCL 100 MG TABLET (FP) PO SCH (22:18)
[2022-11-26] MEDS: MELATONIN 5 MG TABLETS PO SCH (22:18)
[2022-11-27] MEDS ORDERED: LORazepam 0.5 MG TABLET PO PRN
[2022-11-27] MEDS: LORazepam 0.5 MG TABLET PO SCH ×4 (06:12→22:29)
[2022-11-27] MEDS: PRENATAL VITAMINS W/ FOLIC ACID TABLET (FP) PO SCH (10:31)
[2022-11-27] MEDS: LACTULOSE 20 GM/30 ML UDC (FOR ORAL USE ONLY) PO SCH ×4 (10:31→22:30)
[2022-11-27] MEDS: CYANOCOBALAMIN 1,000 MCG TABLET (FP) PO SCH (11:15)
[2022-11-27 14:25] LABS: HEMATOCRIT 26.1 % (35.4-49); HEMOGLOBIN 8.9 GM/dL (11.7-16.9); MCHC 34.2 g/dl (32.0-35.9); MEAN CELL VOLUME 114.1 fl (80-96); MEAN PLT VOLUME 9.1 fl (7.5-11.1); PLATELET COUNT 178 10^3/uL (134-434); RBC 2.29 M/mm3 (4.00-5.60); RDW 25.8 % (11.9-15.9); WHITE BLOOD COUNT 6.2 K/mm3 (4.0-10.0)
[2022-11-27 15:05] LABS: ANISOCYTOSIS 3+; MACROCYTOSIS 3+; PLATELET ESTIMATE DECREASED
[2022-11-27] MEDS: MELATONIN 5 MG TABLETS PO SCH (22:29)
[2022-11-27] MEDS: THIAMINE HCL 100 MG TABLET (FP) PO SCH (22:29)
[2022-11-28] MEDS ORDERED: LORazepam 0.5 MG TABLET PO ONE (05:00)
[2022-11-28] MEDS: LACTULOSE 20 GM/30 ML UDC (FOR ORAL USE ONLY) PO SCH ×2 (10:40→14:00)
[2022-11-28] MEDS: PRENATAL VITAMINS W/ FOLIC ACID TABLET (FP) PO SCH (10:40)
[2022-11-28] MEDS: CYANOCOBALAMIN 1,000 MCG TABLET (FP) PO SCH (10:40)
[2022-11-28] MEDS ORDERED: FERROUS SO4 325 MG TABLET (FP) PO SCH (12:00)
[2022-11-28 13:41] VITALS: BP 117/73; PULSE 104; RESP 20; TEMP 98.1
== END 2022-11-28 14:58 | disposition other institution (70) | DRG 774 ==
LOC: YASAS 09:37 → Y6N 14:22
PROVIDERS: ADMIT Allergy & Immunology; ATTEND Surgery
PROC: HZ2ZZZZ Detoxification Services for Substance Abuse Treatment (ICD-10-PCS; principal; 2022-11-24)
DX: F10.230 Alcohol dependence with withdrawal, uncomplicated (principal); F14.20 Cocaine dependence, uncomplicated; F17.210 Nicotine dependence, cigarettes, uncomplicated; E53.8 Deficiency of other specified B group vitamins; I25.10 Atherosclerotic heart disease of native coronary artery without angina pectoris; I69.854 Hemiplegia and hemiparesis following other cerebrovascular disease affecting left non-dominant side; Z87.820 Personal history of traumatic brain injury; Z99.89 Dependence on other enabling machines and devices
CPT/HCPCS: 36415; 80053; 82140; 82607; 85025; 85027; 86780; 93005; 93010; C9803-CS; U0003; U0005

== ENCOUNTER 2022-11-28 15:22 | Inpatient (IN) | payer OTHER ==
[2022-11-28] MEDS ORDERED: hydrOXYzine PAMOATE 25 MG CAPSULE (FP) PO PRN (17:34)
[2022-11-28] MEDS ORDERED: MAG HYDROX/AL HYDROX/SIMETH 30 ML UNIT-DOSE CUP PO PRN (17:34)
[2022-11-28] MEDS ORDERED: ACETAMINOPHEN 325 MG TABLET (FP) PO PRN (17:34)
[2022-11-28] MEDS ORDERED: POLYETHYLENE GLYCOL (HEALTHYLAX) 3350 17 GM PACKET PO PRN (17:34)
[2022-11-28] MEDS ORDERED: guaiFENesin 200 MG/10 ML 10 ML UNIT-DOSE CUPS PO PRN (17:34)
[2022-11-28] MEDS ORDERED: NICOTINE POLACRILEX 4 MG GUM BUC PRN (17:34)
[2022-11-28] MEDS ORDERED: BENZOCAINE/MENTHOL (CHLORASEPTIC ) LOZENGE MM PRN (17:34)
[2022-11-28] MEDS ORDERED: MAGNESIUM HYDROX 2400MG/30ML ORAL SUSPENSION 30 ML CUP PO PRN (17:34)
[2022-11-28] MEDS ORDERED: NICOTINE 10 MG CARTRIDGE (INHALER) IH PRN (17:34)
[2022-11-28] MEDS ORDERED: LOPERAMIDE HCL 2 MG CAPSULE PO PRN (17:34)
[2022-11-28] MEDS: MELATONIN 5 MG TABLETS PO SCH (21:59)
[2022-11-28] MEDS: THIAMINE HCL 100 MG TABLET (FP) PO SCH (21:59)
[2022-11-29] MEDS: NICOTINE 14 MG/24 HOURS TOPICAL PATCH TD SCH (10:02)
[2022-11-29] MEDS: PRENATAL VITAMINS W/ FOLIC ACID TABLET (FP) PO SCH (10:02)
[2022-11-29] MEDS: FERROUS SO4 325 MG TABLET (FP) PO SCH (10:03)
[2022-11-29] MEDS: THIAMINE HCL 100 MG TABLET (FP) PO SCH (21:47)
[2022-11-29] MEDS: MELATONIN 5 MG TABLETS PO SCH (21:47)
[2022-11-30] MEDS: PRENATAL VITAMINS W/ FOLIC ACID TABLET (FP) PO SCH (10:43)
[2022-11-30] MEDS: NICOTINE 14 MG/24 HOURS TOPICAL PATCH TD SCH (10:44)
[2022-11-30] MEDS: FERROUS SO4 325 MG TABLET (FP) PO SCH (10:45)
[2022-11-30] MEDS: IBUPROFEN 400 MG TABLET (FP) PO PRN (14:31)
[2022-11-30] MEDS: MELATONIN 5 MG TABLETS PO SCH (21:08)
[2022-11-30] MEDS: THIAMINE HCL 100 MG TABLET (FP) PO SCH (21:08)
[2022-12-01 06:40] VITALS: RESP 18
[2022-12-01] MEDS: FERROUS SO4 325 MG TABLET (FP) PO SCH (09:54)
[2022-12-01] MEDS: NICOTINE 14 MG/24 HOURS TOPICAL PATCH TD SCH (09:54)
[2022-12-01] MEDS: PRENATAL VITAMINS W/ FOLIC ACID TABLET (FP) PO SCH (09:54)
[2022-12-01] MEDS: MELATONIN 5 MG TABLETS PO SCH (21:47)
[2022-12-01] MEDS: THIAMINE HCL 100 MG TABLET (FP) PO SCH (21:47)
[2022-12-01] MEDS: IBUPROFEN 400 MG TABLET (FP) PO PRN (21:48)
[2022-12-02] MEDS: PRENATAL VITAMINS W/ FOLIC ACID TABLET (FP) PO SCH (10:43)
[2022-12-02] MEDS: FERROUS SO4 325 MG TABLET (FP) PO SCH (10:44)
[2022-12-02] MEDS: NICOTINE 14 MG/24 HOURS TOPICAL PATCH TD SCH (10:44)
[2022-12-02] MEDS: LACTULOSE 20 GM/30 ML UDC (FOR ORAL USE ONLY) PO SCH ×2 (14:24→21:33)
[2022-12-02] MEDS: BACITRACIN 0.9 GM PACKET TP SCH ×2 (15:00→21:33)
[2022-12-02] MEDS: MELATONIN 5 MG TABLETS PO SCH (21:33)
[2022-12-02] MEDS: THIAMINE HCL 100 MG TABLET (FP) PO SCH (21:33)
[2022-12-03] MEDS: LACTULOSE 20 GM/30 ML UDC (FOR ORAL USE ONLY) PO SCH ×3 (06:13→21:34)
[2022-12-03] MEDS: P-EPHED 60MG/TRIPROLIDI 2.5MG TABLET PO PRN (06:14)
[2022-12-03] MEDS: NICOTINE 14 MG/24 HOURS TOPICAL PATCH TD SCH (09:43)
[2022-12-03] MEDS: BACITRACIN 0.9 GM PACKET TP SCH ×2 (09:43→21:34)
[2022-12-03] MEDS: FERROUS SO4 325 MG TABLET (FP) PO SCH (09:43)
[2022-12-03] MEDS: PRENATAL VITAMINS W/ FOLIC ACID TABLET (FP) PO SCH (09:43)
[2022-12-03] MEDS: MELATONIN 5 MG TABLETS PO SCH (21:34)
[2022-12-03] MEDS: THIAMINE HCL 100 MG TABLET (FP) PO SCH (21:34)
[2022-12-03] MEDS: IBUPROFEN 400 MG TABLET (FP) PO PRN (21:35)
[2022-12-04] MEDS: LACTULOSE 20 GM/30 ML UDC (FOR ORAL USE ONLY) PO SCH ×3 (06:22→21:11)
[2022-12-04] MEDS: P-EPHED 60MG/TRIPROLIDI 2.5MG TABLET PO PRN (06:25)
[2022-12-04] MEDS: BACITRACIN 0.9 GM PACKET TP SCH ×2 (10:01→21:13)
[2022-12-04] MEDS: FERROUS SO4 325 MG TABLET (FP) PO SCH (10:01)
[2022-12-04] MEDS: NICOTINE 14 MG/24 HOURS TOPICAL PATCH TD SCH (10:01)
[2022-12-04] MEDS: PRENATAL VITAMINS W/ FOLIC ACID TABLET (FP) PO SCH (10:01)
[2022-12-04] MEDS: THIAMINE HCL 100 MG TABLET (FP) PO SCH (21:11)
[2022-12-04] MEDS: MELATONIN 5 MG TABLETS PO SCH (21:11)
[2022-12-04] MEDS: IBUPROFEN 400 MG TABLET (FP) PO PRN (21:12)
[2022-12-05] MEDS: LACTULOSE 20 GM/30 ML UDC (FOR ORAL USE ONLY) PO SCH ×3 (06:38→22:10)
[2022-12-05] MEDS: FERROUS SO4 325 MG TABLET (FP) PO SCH (09:43)
[2022-12-05] MEDS: BACITRACIN 0.9 GM PACKET TP SCH ×2 (09:43→22:11)
[2022-12-05] MEDS: NICOTINE 14 MG/24 HOURS TOPICAL PATCH TD SCH (09:43)
[2022-12-05] MEDS: PRENATAL VITAMINS W/ FOLIC ACID TABLET (FP) PO SCH (09:43)
[2022-12-05] MEDS: THIAMINE HCL 100 MG TABLET (FP) PO SCH (22:10)
[2022-12-05] MEDS: MELATONIN 5 MG TABLETS PO SCH (22:10)
[2022-12-05] MEDS: IBUPROFEN 400 MG TABLET (FP) PO PRN (22:11)
[2022-12-06] MEDS: LACTULOSE 20 GM/30 ML UDC (FOR ORAL USE ONLY) PO SCH ×3 (06:47→22:10)
[2022-12-06] MEDS: FERROUS SO4 325 MG TABLET (FP) PO SCH (09:39)
[2022-12-06] MEDS: BACITRACIN 0.9 GM PACKET TP SCH ×2 (09:39→22:11)
[2022-12-06] MEDS: NICOTINE 14 MG/24 HOURS TOPICAL PATCH TD SCH (09:39)
[2022-12-06] MEDS: PRENATAL VITAMINS W/ FOLIC ACID TABLET (FP) PO SCH (09:39)
[2022-12-06] MEDS: THIAMINE HCL 100 MG TABLET (FP) PO SCH (22:10)
[2022-12-06] MEDS: MELATONIN 5 MG TABLETS PO SCH (22:10)
[2022-12-06] MEDS: IBUPROFEN 400 MG TABLET (FP) PO PRN (22:11)
[2022-12-07] MEDS: LACTULOSE 20 GM/30 ML UDC (FOR ORAL USE ONLY) PO SCH ×3 (06:00→22:03)
[2022-12-07] MEDS: NICOTINE 14 MG/24 HOURS TOPICAL PATCH TD SCH (10:13)
[2022-12-07] MEDS: BACITRACIN 0.9 GM PACKET TP SCH ×2 (10:13→22:03)
[2022-12-07] MEDS: PRENATAL VITAMINS W/ FOLIC ACID TABLET (FP) PO SCH (10:13)
[2022-12-07] MEDS: FERROUS SO4 325 MG TABLET (FP) PO SCH (10:13)
[2022-12-07] MEDS: P-EPHED 60MG/TRIPROLIDI 2.5MG TABLET PO PRN (13:10)
[2022-12-07] MEDS: MELATONIN 5 MG TABLETS PO SCH (22:03)
[2022-12-07] MEDS: THIAMINE HCL 100 MG TABLET (FP) PO SCH (22:03)
[2022-12-07] MEDS: IBUPROFEN 400 MG TABLET (FP) PO PRN (22:04)
[2022-12-08] MEDS: LACTULOSE 20 GM/30 ML UDC (FOR ORAL USE ONLY) PO SCH ×3 (06:30→21:10)
[2022-12-08] MEDS: NICOTINE 14 MG/24 HOURS TOPICAL PATCH TD SCH (09:40)
[2022-12-08] MEDS: PRENATAL VITAMINS W/ FOLIC ACID TABLET (FP) PO SCH (09:40)
[2022-12-08] MEDS: FERROUS SO4 325 MG TABLET (FP) PO SCH (09:41)
[2022-12-08] MEDS: BACITRACIN 0.9 GM PACKET TP SCH ×2 (09:41→21:10)
[2022-12-08] MEDS: MELATONIN 5 MG TABLETS PO SCH (21:10)
[2022-12-08] MEDS: THIAMINE HCL 100 MG TABLET (FP) PO SCH (21:10)
[2022-12-08] MEDS: IBUPROFEN 400 MG TABLET (FP) PO PRN (21:11)
[2022-12-09] MEDS: LACTULOSE 20 GM/30 ML UDC (FOR ORAL USE ONLY) PO SCH ×3 (06:34→21:32)
[2022-12-09] MEDS: PRENATAL VITAMINS W/ FOLIC ACID TABLET (FP) PO SCH (10:44)
[2022-12-09] MEDS: FERROUS SO4 325 MG TABLET (FP) PO SCH (10:44)
[2022-12-09] MEDS: BACITRACIN 0.9 GM PACKET TP SCH ×2 (10:44→21:32)
[2022-12-09] MEDS: NICOTINE 14 MG/24 HOURS TOPICAL PATCH TD SCH (10:44)
[2022-12-09] MEDS ORDERED: SODIUM CHLORIDE NASAL SPRAY 44 ML BOTTLE NS PRN (11:43)
[2022-12-09] MEDS ORDERED: PSEUDOEPHEDRINE HCL 30 MG TABLET PO SCH (11:45)
[2022-12-09] MEDS: PSEUDOEPHEDRINE HCL 30 MG TABLET PO PRN (13:21)
[2022-12-09] MEDS: MELATONIN 5 MG TABLETS PO SCH (21:32)
[2022-12-09] MEDS: THIAMINE HCL 100 MG TABLET (FP) PO SCH (21:32)
[2022-12-09] MEDS: IBUPROFEN 400 MG TABLET (FP) PO PRN (21:33)
[2022-12-09] MEDS: RIFAXIMIN 550 MG TABLET PO SCH (21:52)
[2022-12-10] MEDS: LACTULOSE 20 GM/30 ML UDC (FOR ORAL USE ONLY) PO SCH ×3 (06:25→21:11)
[2022-12-10] MEDS: NICOTINE 14 MG/24 HOURS TOPICAL PATCH TD SCH (09:47)
[2022-12-10] MEDS: RIFAXIMIN 550 MG TABLET PO SCH ×2 (09:47→21:11)
[2022-12-10] MEDS: PRENATAL VITAMINS W/ FOLIC ACID TABLET (FP) PO SCH (09:47)
[2022-12-10] MEDS: FERROUS SO4 325 MG TABLET (FP) PO SCH (09:47)
[2022-12-10] MEDS: BACITRACIN 0.9 GM PACKET TP SCH ×2 (09:47→21:11)
[2022-12-10] MEDS: MELATONIN 5 MG TABLETS PO SCH (21:11)
[2022-12-10] MEDS: THIAMINE HCL 100 MG TABLET (FP) PO SCH (21:11)
[2022-12-11] MEDS: LACTULOSE 20 GM/30 ML UDC (FOR ORAL USE ONLY) PO SCH ×3 (05:55→21:07)
[2022-12-11] MEDS: PSEUDOEPHEDRINE HCL 30 MG TABLET PO PRN ×2 (05:58→21:09)
[2022-12-11] MEDS: IBUPROFEN 400 MG TABLET (FP) PO PRN (05:58)
[2022-12-11] MEDS: PRENATAL VITAMINS W/ FOLIC ACID TABLET (FP) PO SCH (10:29)
[2022-12-11] MEDS: RIFAXIMIN 550 MG TABLET PO SCH ×2 (10:29→21:07)
[2022-12-11] MEDS: NICOTINE 14 MG/24 HOURS TOPICAL PATCH TD SCH (10:29)
[2022-12-11] MEDS: BACITRACIN 0.9 GM PACKET TP SCH ×2 (10:29→21:07)
[2022-12-11] MEDS: FERROUS SO4 325 MG TABLET (FP) PO SCH (10:29)
[2022-12-11] MEDS: MELATONIN 5 MG TABLETS PO SCH (21:07)
[2022-12-11] MEDS: THIAMINE HCL 100 MG TABLET (FP) PO SCH (21:09)
[2022-12-12] MEDS: LACTULOSE 20 GM/30 ML UDC (FOR ORAL USE ONLY) PO SCH (06:30)
[2022-12-12 06:56] VITALS: BP 106/73; PULSE 83; TEMP 97.5
[2022-12-12] MEDS: FERROUS SO4 325 MG TABLET (FP) PO SCH (09:19)
[2022-12-12] MEDS: PRENATAL VITAMINS W/ FOLIC ACID TABLET (FP) PO SCH (09:20)
[2022-12-12] MEDS: RIFAXIMIN 550 MG TABLET PO SCH (09:20)
[2022-12-12] MEDS: NICOTINE 14 MG/24 HOURS TOPICAL PATCH TD SCH (09:20)
[2022-12-12] MEDS: BACITRACIN 0.9 GM PACKET TP SCH (09:20)
[2022-12-12] MEDS: IBUPROFEN 400 MG TABLET (FP) PO PRN (09:21)
== END 2022-12-12 09:36 | disposition home or self-care (01) | DRG 772 ==
LOC: YASAS 15:22 → Y3W 15:23
PROVIDERS: ADMIT Allergy & Immunology; ATTEND Allergy & Immunology
PROC: HZ42ZZZ Group Counseling for Substance Abuse Treatment, Cognitive-Behavioral (ICD-10-PCS; principal; 2022-11-28)
DX: F10.20 Alcohol dependence, uncomplicated (principal); F14.20 Cocaine dependence, uncomplicated; F12.10 Cannabis abuse, uncomplicated; F17.210 Nicotine dependence, cigarettes, uncomplicated; E72.20 Disorder of urea cycle metabolism, unspecified; D72.819 Decreased white blood cell count, unspecified; E53.8 Deficiency of other specified B group vitamins; I25.10 Atherosclerotic heart disease of native coronary artery without angina pectoris; I69.844 Monoplegia of lower limb following other cerebrovascular disease affecting left non-dominant side; Z87.820 Personal history of traumatic brain injury
CPT/HCPCS: 82140